=== PATIENT | female | born 1940 | race Caucasian/White ===

== ENCOUNTER 2017-07-04 09:49 | Emergency (ER) | payer MEDICARE ==
[2017-07-04 11:05] LABS: Hemoglobin 14.9 g/dL (12.0-16.0); Mean Corpuscular HGB CONC 34.8 g/dL (32.0-36.0); Mean Corpuscular Hemoglobin 30.4 pg (27.0-31.0); Mean Corpuscular Volume 87.3 fl (81.0-99.0); RBC Distribution Width 13.7 % (11.5-14.5); White Blood Cell (WBC) Count 8.9 thou/uL (4.8-10.8)
[2017-07-04] MEDS ORDERED: Lidocaine 1% w/Epinephrine 1:100K 20 ML VIAL ONE (11:18)
[2017-07-04 11:22] LABS: #Eosinphils 0.2 thou/uL (0.0-0.7); #Lymphocytes 1.2 thou/uL (1.20-3.40); #Monocytes 0.8 thou/uL (0.11-0.59); #Neutrophils 6.7 thou/uL (1.40-6.50); %Basophils 0.2 % (0.0-1.0); %Eosinophils 2.2 % (0.0-10.0); %Lymphocytes 13.7 % (21.0-51.0); %Monocytes 8.4 % (0.0-10.0); %Neutrophils 75.4 % (42.0-75.0); Mean Platelet Volume 11.2 fL (7.4-10.4); PLT Morphology Comment Appears Adequate; Platelet Count 43 thou/uL (130-400)
[2017-07-04 11:26] LABS: Anion Gap 15 mmol/L (10-20); BUN (Urea Nitrogen) 18 mg/dL (9.8-20.1); CRP (Inflammatory) 1.27 mg/dL (= or < 0.5); Calc. Creatinine Clearance 0 mL/min (70-130); Calcium 10.6 mg/dL (7.8-10.44); Carbon Dioxide 25 mmol/L (23-31); Chloride 100 mmol/L (98-107); Estimated GFR-MDRD 51; Glucose 191 mg/dL (83-110); Potassium 4.5 mmol/L (3.5-5.1); Sodium 135 mmol/L (136-145)
[2017-07-04] MEDS ORDERED: oxyCODONE/Acetaminophen 5 mg/325 mg Tablet PO SCH (11:30)
--- NOTE | 2017-07-04 11:30 | RAD ---
RIGHT KNEE 4 VIEWS: History Pain. COMPARISON: None. FINDINGS: There is moderate medial compartment, lateral compartment, and patellofemoral component degenerative change. Chondrocalcinosis is identified. No significant joint fluid. No fracture. IMPRESSION: Moderate tricompartment degenerative change. No fracture. POS: [facility]
[2017-07-04 12:39] LABS: BF Color Yellow; Body Fluid Source SYNOVIAL FLUID; Clarity Cloudy/Turbid (Clear); RBC Background Count 0.008; RBC Count-Automated 17000 /cumm; Tube # EDTA; WBC Background Count 0.01; WBC/NonHematic-Auto 5870 /cumm
[2017-07-04 13:34] LABS: BF Segmented Neutrophils 98 %; Lymphocytes 2 %
== END 2017-07-04 14:55 | disposition home or self-care (01) ==
LOC: ERS 09:49
DX: M13.161 Monoarthritis, not elsewhere classified, right knee (principal); E83.52 Hypercalcemia; D69.6 Thrombocytopenia, unspecified; E11.9 Type 2 diabetes mellitus without complications; Z85.3 Personal history of malignant neoplasm of breast; Z79.4 Long term (current) use of insulin; Z79.891 Long term (current) use of opiate analgesic; Z79.899 Other long term (current) drug therapy
CPT/HCPCS: 20610; 36415; 80048; 82945; 85025; 85060; 85652; 86140; 87070; 87205; 89051; J2001

== ENCOUNTER 2017-11-27 17:03 | Inpatient (IN) | payer MEDICARE ==
[2017-11-27] MEDS ORDERED: Ondansetron HCl/PF 4 MG/2 ML Vial ONE (17:31)
[2017-11-27] MEDS ORDERED: Morphine 2 MG/ML SYRINGE ONE ×2 (17:31→23:02)
--- NOTE | 2017-11-27 18:31 | RAD ---
FRONTAL RADIOGRAPH PELVIS 11/27/17 COMPARISON: None. HISTORY: Groin pain. No history of fall. FINDINGS: Moderate degenerative changes seen involving bilateral hips. Pelvic ring is intact. No widening of th e sacroiliac joints or pubic symphysis. No displaced fracture. IMPRESSION: No acute findings. POS: [facility]
--- NOTE | 2017-11-27 18:33 | RAD ---
TWO VIEWS OF THE RIGHT HIP 11/27/17 COMPARISON: None. HISTORY: Sudden pain in the right groin, no history of fall. FINDINGS: There is moderate degenerative change involving the right sacroiliac joint, the right hip and the pub ic symphysis. No acute osseous abnormality. IMPRESSION: Degenerative joint disease. POS: [facility]
--- NOTE | 2017-11-27 18:44 | CT ---
CT OF THE LUMBAR SPINE 11/27/17 COMPARISON: None. HISTORY: Pain. TECHNIQUE: Serial axial CT imaging is obtained at 2.5 mm intervals through the lumbar spine without contrast. Co michael and sagittal reformatted imaging obtained. FINDINGS: Evaluation for central canal and/or neural foraminal stenosis is limited on routine CT. There is extensive atherosclerotic calcification of the infrarenal abdominal aorta and the pelvic art erial branches. There is prominent degenerative change involving bilateral sacroiliac joints. On the basis of 12 lumb ar type vertebral bodies, there is anterolisthesis of L4 on L5 measuring 7-8 mm. At T11-12, there is disc space narrowing and prominent posterior osteophyte with severe central canal stenosis, incompletely assessed. T12-L1: Disc space narrowing, degenerative end plate change, vacuum disc formation, and posterior dis c osteophyte complex causes severe central canal stenosis. Significant right neural foraminal stenosi s noted as well. L1-2: Disc space narrowing, degenerative end plate change and disc osteophyte complex present with at least moderate central canal stenosis and at least mild bilateral neural foraminal stenosis, left gr eater than right. L2-3: Prominent facet hypertrophy noted, left greater than right. Disc bulge present with moderate/se erick central canal stenosis. Vacuum disc present. Moderate bilateral neural foraminal stenosis, left greater than right. L3-4: Prominent bilateral facet hypertrophy. Prominent disc bulge with severe central canal stenosis and moderate bilateral neural foraminal stenosis. L4-5: Prominent bilateral facet hypertrophy. Mild left and severe right neural foraminal stenosis erica pected. At least moderate central canal stenosis. L5-S1: Bilateral facet hypertrophy with no significant central canal or neural foraminal stenosis. No acute fracture is seen. IMPRESSION: Severe multilevel degenerative change noted within the lumbar spine as above. POS: [facility]
[2017-11-27] MEDS ORDERED: Dexamethasone 4 mg/ml Vial ONE (19:00)
[2017-11-27] MEDS ORDERED: Ketorolac Tromethamine 30 MG/ML VIAL ONE (19:43)
--- NOTE | 2017-11-27 20:44 | CT ---
CT OF THE PELVIS 11/27/17 COMPARISON: None. HISTORY: Lateral hip pain radiating into the leg on the right and into the lower back on the left. TECHNIQUE: Serial axial CT imaging at 3.75 mm intervals through the pelvis without contrast. Coronal and sagitta l reformatted imaging obtained. FINDINGS: The uterus appears surgically absent. There is a low density lesion in the right hemipelvis associated with the right ovary measuring 1.6 c m, suggesting a cyst. Nonemergent followup pelvic ultrasound is advised given patient's age. There is sigmoid diverticulosis. There is scattered atherosclerotic calcification of the distal abdom inal aorta and the arterial structures of the pelvis. There is a sclerotic focus within the ischium on the left measuring 1.1 cm suggesting a benign bone i sland in the absence of known malignancy. There is moderate degenerative change involving the pubic symphysis. There is no evidence for fractur e of the superior or inferior pubic ramus on either side. There is moderate degenerative change invol ving bilateral sacroiliac joints. Moderate degenerative changes seen involving bilateral hips with joint narrowing, subchondral scleros is and osteophyte formation. Neither hip appears dislocated. No displaced fracture is identified invo lving the imaged proximal femur on either side. No evidence for a sacral fracture is seen. There is p rominent lower lumbar spine degenerative change, better assessed on dedicated lumbar spine CT. IMPRESSION: Chronic findings described above. No acute osseous abnormality is seen. If symptoms persists, followu p MRI suggested. POS: [facility]
[2017-11-27] MEDS ORDERED: Diazepam 5 MG TAB PO SCH (21:00)
[2017-11-27] MEDS ORDERED: Ondansetron HCl/PF 4 MG/2 ML Vial IVP PRN (23:56)
[2017-11-28 00:06] VITALS: BMI 28.0
[2017-11-28] MEDS: Morphine 4 MG/ML VIAL SLOW IVP PRN ×2 (03:18→07:56)
[2017-11-28] MEDS: Ondansetron ODT 4 MG TAB SL PRN ×2 (03:21→07:57)
[2017-11-28] MEDS ORDERED: HumaLOG 300 UNITS/3 ML VIAL SC PRN (10:49)
[2017-11-28] MEDS: HumaLOG 300 UNITS/3 ML VIAL SC PRN ×2 (13:07→18:01)
[2017-11-28 15:07] LABS: Bilirubin Negative (Negative); Blood, Urine Negative (Negative); Clarity CLOUDY (Clear); Glucose, Urine (Dipstick) 250 mg/dL (Negative); Leukocyte Small (Negative); Nitrite Positive (Negative); Protein, Urine (Dipstick) Negative (Neg-Trace); Specific Gravity, Urine 1.022 (1.002-1.036); Urobilinogen 0.2 mg/dL (0.2-1.0)
[2017-11-28 15:09] LABS: Bacteria/HPF 4+ HPF (None Seen); Hyaline Casts/LPF 0-3 HYALINE CAST LPF (0-3 Hyaline); Pathc Cast-AUWi Flag 0.29 (0-2.49); RBC/HPF 0-3 HPF (0-3); Squamous Epithelial 0-3 HPF (0-3); WBC/HPF 21-50 HPF (0-3)
--- NOTE | 2017-11-28 15:37 | HP ---
DATE OF ADMISSION: 11/28/2017 CHIEF COMPLAINT: Right hip pain, low back pain. 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 The patient states that she has a long history of arthritis and has seen Orthopedics for her left kne e pain in the past, has chronic back pain as well, but yesterday evening, while she was standing up f rom the couch, she developed severe right hip pain to where she could not stand, could not move, was sent by EMS to the emergency department and had a full evaluation there with a pelvic x-ray, pelvic C T, lumbar CT, hip x-ray, and all of these reported severe degenerative joint disease, but no fracture , no masses, no bony destructions. She was given multiple medications in the emergency department to try to relieve her pain including Decadron, Valium, Toradol. She finally had some relief with IV mo rphine through the evening. She is somewhat more comfortable now, able to move her right hip, but co ntinues to have pain with movement, and inability to stand on that right hip. PAST MEDICAL HISTORY: Type 2 diabetes, arthritis, breast cancer, chronic kidney disease, hypertensio n, hyperlipidemia. ALLERGIES: TALWIN and MINOCIN. MEDICATIONS: Include losartan 50 mg daily; Novolin 70/30, 50 units twice a day; fenofibrate 160 mg d aily; levothyroxine 115 mcg once daily; Celebrex 100 mg once daily; tramadol p.r.n. severe pain; simv astatin 20 mg daily; Tylenol with Codeine p.r.n. severe pain. PAST SURGICAL HISTORY: Status post right mastectomy in 2013, past hysterectomy, and tonsillectomy. FAMILY HISTORY: Father with diabetes. Siblings with coronary artery disease and diabetes. SOCIAL HISTORY: She lives alone. She is a . Family visits. 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 No smoking, no alcohol, no drug use. REVIEW OF SYSTEMS: As per the history of present illness. General: She denies any recent fevers, c hills, or recent illness. HEENT: Denies headache, visual or hearing changes. Denies recent upper r espiratory symptoms. Cardiac: Denies chest pain, shortness of breath, or palpitations. Pulmonary: Denies cough or hemoptysis. Gastrointestinal: Denies nausea, vomiting, constipation, diarrhea, breanna yuli, or hematochezia. Genitourinary: Denies dysuria, hematuria, no recent urinary tract infection. Musculoskeletal: Positive for chronic joint pains. Positive for chronic back pain. Neurologic: N o history of seizures or syncope. PHYSICAL EXAMINATION: VITAL SIGNS: Temperature 98.0, pulse is 73 and regular, respirations 18, blood pressure 123/71, puls e ox is 97% on 2 liters and 96% on room air. GENERAL: She is awake and alert, in no acute distress. Speech is clear and fluid. NECK: Supple, no JVD, adenopathy, or bruits. HEART: Regular rate and rhythm with 2/6 systolic ejection murmur. LUNGS: Clear bilaterally. ABDOMEN: Soft, nontender, nondistended. No hepatosplenomegaly. EXTREMITIES: No clubbing, cyanosis, or edema. She has 2+ peripheral pulses bilaterally. MUSCULOSKELETAL: She has a painful range of motion of her right hip with tenderness anteriorly and l aterally. She has evidence of bony destruction in her hands and knees. NEUROLOGIC: Cranial nerves II-XII are grossly intact. Sensation is intact bilaterally. Strength is 5/5 in upper and lower extremities. LABORATORY DATA: Accu-Cheks of [address] revealed extensive degenerative joint disease , right ovarian cyst, sigmoid diverticulosis, a sclerotic focus in the ischium on the left, 1.1 cm, l ikely a benign bone island, and degenerative joint disease of the pubic symphysis, no fracture, moder ate degeneration of the SI joints, moderate degenerative changes in bilateral hips with joint narrowi ng and osteophyte formation. No dislocation, no fractures, degeneration in the lumbar spine as well. A lumbar CT revealed diffuse degeneration throughout the lumbar spine with disk narrowing and osteo phyte formation, severe canal stenosis at T12 and L1, L1-L2. Disk bulge present at L2-L3, L3-L4, L4- L5 with right neural foraminal stenosis, but no fracture seen. ASSESSMENT AND PLAN: This is a 77-year-old female patient with multiple medical problems, now with a cute worsening of her low back and right hip pain. She has had some relief of her pain with analgesi cs, but still continues to have inability to ambulate and put weight on that right hip. 1. Right hip pain. We will consult Orthopedics for evaluation. She might benefit from an injection to give her some relief and decrease inflammation in that hip. We will consult PT for evaluation as well. We will initiate rehab placement, so if she does not improve over the next few days, she can be transferred to the rehabilitation unit on a short term. 2. Spinal stenosis. I will check MRI of the spine. May need neurosurgery evaluation. Again, might benefit from steroid injection for spinal stenosis as well. I will initiate PT for this as well. 3. Type 2 diabetes. We will continue her home treatment with insulin as well as insulin sliding sca le. 4. Hypertension is better controlled on her medications. 5. Past history of breast cancer.
--- NOTE | 2017-11-28 16:16 | MRI ---
MRI LUMBAR SPINE NONCONTRAST: 11/28/17 HISTORY: Back pain with right leg radiculopathy. FINDINGS: In keeping with the numbering from the CT lumbar spine 11/27/17, the transitional vertebra will be kenia ignated as the fifth lumbar level, with other levels numbered accordingly. Vertebral body heights are maintained. There is desiccation of all of the intervertebral discs. Degenerative changes of the low er thoracic spine are evident. Prominent posterior disc protrusion at the T11-12 level with moderate to severe central canal stenosis. T12-L1: Posterior and right posterolateral disc protrusion significantly compresses the thecal sac, g reater to the right of midline. Severe central canal stenosis. Disc space narrowing with minimal dege nerative retrolisthesis Far right lateral protrusion of the disc compresses the nerve root within the right neural foramen. Moderate left foraminal stenosis. L1-2: Disc space narrowing. Minimal degenerative retrolisthesis. Posterior disc bulge and circumferen tial degenerative changes with moderate stenosis of the central canal and each neural foramen. L2-3: Posterior disc bulge and disc space narrowing. Circumferential degenerative change with moderat e stenosis of the central canal. Moderate right and severe left foraminal stenoses. L3-4: Posterior disc bulge and circumferential degenerative changes with severe stenosis of the centr al canal. Moderate to severe bilateral foraminal stenoses. L4-5: Posterior disc bulge. Circumferential degenerative changes with moderate stenosis of the centra l canal. Severe right and moderate left foraminal stenoses. L5-S1: Mild osteophytosis. Central canal and neural foramina are patent. IMPRESSION: Far right lateral disc protrusion at the T12-L1 level compressing the nerve root within the neural fo ramen. Clinical correlation regarding the right T12 dermatome is required. Severe multilevel degenerative changes throughout the lumbar spine, with central canal and foraminal stenoses as detailed above. POS: [facility]
[2017-11-28] MEDS: HYDROcodone/Acetaminophen 5/325 mg Tablet PO PRN ×2 (18:47→23:48)
[2017-11-28] MEDS: Simvastatin 20 MG TAB PO SCH (20:20)
[2017-11-28] MEDS: Cipro 250 MG TAB PO SCH (20:21)
[2017-11-28] MEDS: Insulin NPH/Reg Insulin Hm 300 UNITS/3 ML VIAL SC SCH (20:21)
[2017-11-28] MEDS: Docusate 100 MG CAP PO SCH (20:21)
[2017-11-28] MEDS ORDERED: CeleCOXIB 100 MG CAP PO SCH (21:00)
[2017-11-29] MEDS ORDERED: Morphine 2 MG/ML SYRINGE SLOW IVP PRN ×2 (00:56→09:55)
[2017-11-29] MEDS: Cipro 250 MG TAB PO SCH ×2 (06:04→20:20)
[2017-11-29] MEDS ORDERED: Acetaminophen/Codeine 30-300mg Tablet PO PRN (08:45)
[2017-11-29] MEDS: Levothyroxine 150 MCG TAB PO SCH (09:03)
[2017-11-29] MEDS: Fenofibrate Nanocrystallized 145 MG TAB PO SCH (09:04)
[2017-11-29] MEDS: Docusate 100 MG CAP PO SCH ×2 (09:04→20:19)
[2017-11-29] MEDS: Insulin NPH/Reg Insulin Hm 300 UNITS/3 ML VIAL SC SCH ×2 (09:05→20:21)
[2017-11-29] MEDS ORDERED: Enoxaparin Sodium 40 MG/0.4 ML SYRINGE SC SCH (09:30)
--- NOTE | 2017-11-29 10:32 | PRG ---
DATE OF SERVICE: 11/29/2017 SUBJECTIVE: The patient had a bad night. She had severe pain in the middle of the night requiring m orphine, because of her right hip and back pain. She has had significant improvement with the morphi ne now. She was evaluated by Orthopedics this morning, but her pain had improved after the morphine. She is still not ambulating much. She did do some with therapy yesterday, but was not able to part icipate that much. Hopefully today, they will be able to do a full evaluation and treatment. OBJECTIVE: VITAL SIGNS: Temperature 98.3, pulse of 80, respirations 18, blood pressure 96/61, pulse ox is 97% o n 2 liters. GENERAL: She is awake and alert. She is no acute distress. She is comfortable. HEENT: Mucosa is moist. HEART: Regular rate and rhythm. LUNGS: Clear. ABDOMEN: Soft. EXTREMITIES: Continues to have painful range of motion of her right hip, decreased range of motion o f her lumbar spine. LABORATORY DATA AND IMAGING: Urinalysis was positive for nitrites, suspicious for UTI. Accu-Cheks 1 23, 210, 252, 231. MRI of the lumbar spine did reveal severe degenerative joint disease throughout t he lumbar spine with central canal and foraminal stenosis, far right lateral disk protrusion at T12-L 1 compressing the nerve root in the neural foramen. ASSESSMENT AND PLAN: This is a 77-year-old female patient with history of breast cancer, hypertensio n, hyperlipidemia, now with sudden onset of severe right hip pain and inability to ambulate. MRI osei s reveal severe spinal stenosis, awaiting orthopedic evaluation. She was seen this morning and is un certain if she would benefit from a hip injection due to her spinal disease. 1. Type 2 diabetes. We will continue home treatment and insulin sliding scale. DISPOSITION: Awaiting rehab evaluation and may also consider outpatient pain management with the spi ne group.
--- NOTE | 2017-11-29 13:08 | CON-2 ---
DATE OF CONSULTATION: 11/29/2017 HISTORY OF PRESENT ILLNESS: We were asked by Dr. Jacobs to see the patient. The patient presented with some hip pain. The patient has had a little time while she has been in the hospital to think and remembers picking up a toy and standing up off a low couch and feeling some pain in her hip. She is not sure if she twisted wrong, but since this time a few days ago, it has been fairly miserable for her. She also has some back pain issues and some knee issues. Apparently, a few months ago she had some fluid drained from the right knee, it still bothers her, but it is much better after the fluid has been drained. She continues to work and is not interested in any surgical intervention at this time if at all possible. PAST MEDICAL HISTORY: Diabetes, arthritis, breast CA, kidney disease, hypertension, hyperlipidemia. ALLERGIES: TALWIN and MINOCIN. PAST SURGICAL HISTORY: Mastectomy, hysterectomy, tonsillectomy. FAMILY HISTORY: Noncontributory. CURRENT MEDICATIONS: Losartan, Novolin, fenofibrate, levothyroxine, Celebrex, tramadol, simvastatin, Tylenol with Codeine. SOCIAL HISTORY: Lives alone. 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 No alcohol or nicotine products. REVIEW OF SYSTEMS: Mostly complains of arthritic pain. She does have kidney disease, but she has been told it is getting a little bit better. No shortness of breath, fever, chills or chest pain. Just mostly arthritic type pains. No bowel or bladder issues either. PHYSICAL EXAMINATION: GENERAL: Well-nourished female, resting in bed, currently in no acute distress. Speech clear. Affect pleasant. Answers questions appropriately. She is alert and oriented x3. HEENT: Normal exam. Face symmetric. Tongue midline. NECK: Supple. RESPIRATORY: No distress. EXTREMITIES: Upper extremities, equal size, shape, symmetry. Normal bulk and tone. Lower extremities, she has her extremities up on pillows. She is able to lift her legs off the bed, has a little bit of hip pain with doing so. Active and passive range of motion of the right hip does cause pain into the groin. Left is without problems. Lower extremities with equal size, shape, symmetry, normal bulk and tone. Sensations are intact as are pulses. X-RAYS: X-ray of her right hip, she has some mild degenerative changes, but it is not awful. Right knee does show some degenerative changes of the lumbar spine, multiple areas of stenosis, foraminal stenosis, degenerative disk disease. A: 1. Right Hip pain/Strain 2. LBP with Lumbar DDD and Spondylosis/Stenosis PLAN: I spoke with the patient at length. Her hip does not look that bad on x- rays and feel really hard pressed to do surgery on her during this hospital visit. I think she could use some physical therapy, some pain relief, may be some outside physical therapy also for stretching and strengthening exercises to give her a little more stability. I do think she needs to follow up with our orthopedic group just so she has an orthopedist at hand in case her knee gets swollen and need to be drained again or for joint injections. We will get this set up for on her discharge orders. She probably needs to see a pain management doctor for some epidural steroid injections and possibly Neurosurgery for evaluation and establish care. All of this has been explained to the patient. I think it is reasonable to get her going on to physical therapy in the hospital to work on pain control. Heat, ice as needed. Hopefully, this is just an isolated event of straining her hip and it will subside in some time. If it continues to plague her again, follow up with the appropriate med staff as above. I discussed the case with Dr. Light. The patient understand the plan and is quite happy with it. [facility]
[2017-11-29] MEDS: Acetaminophen/Codeine 30-300mg Tablet PO PRN ×2 (15:04→20:20)
[2017-11-29] MEDS: CeleCOXIB 100 MG CAP PO SCH (20:20)
[2017-11-29] MEDS: Simvastatin 20 MG TAB PO SCH (20:20)
[2017-11-29] MEDS ORDERED: Losartan 25 MG TAB PO SCH ×2 (21:00)
[2017-11-30] MEDS: Acetaminophen/Codeine 30-300mg Tablet PO PRN ×2 (01:35→09:07)
[2017-11-30] MEDS: Cipro 250 MG TAB PO SCH (05:43)
--- NOTE | 2017-11-30 07:54 | PRG ---
DATE OF SERVICE: 11/30/2017 SUBJECTIVE: The patient has some improvement of her pain. She has not needed more morphine. She is ambulating with assistance to the bathroom and to the potty chair. She has not been independent. O rthopedics evaluated the patient and feels like her pain is more spinal in origin. She denies chest pain, shortness of breath or palpitations. OBJECTIVE: VITAL SIGNS: Temperature 97.7, pulse is 78, respirations 16, pulse ox is 94% on room air, blood pres sure 104/65. GENERAL: She is awake and alert, in no acute distress. Speech is clear. HEENT: Mucosa is moist. HEART: Regular rate and rhythm. LUNGS: Clear. ABDOMEN: Soft. EXTREMITIES: With no edema. Decreased range of motion of the right hip, strength is 3/5 in the righ t leg, 5/5 in the left leg, worse with flexion of the hip. Sensation is intact bilaterally. ASSESSMENT AND PLAN: 1. This is a 77-year-old female patient with history of breast cancer, hypertension, hyperlipidemia, now with sudden onset of severe right hip pain and inability to ambulate, likely secondary to spinal stenosis with severe degenerative joint disease and radiculopathy symptoms. I will continue current therapy and continue physical therapy. Hopefully, we will be able to transfer to rehab soon and brodie l schedule outpatient evaluation by pain management with Dr. Stahl and Dr. Browning. 2. Type 2 diabetes. We will continue home treatment. Hopefully, we will not have further episodes of hypoglycemia. 3. Urinary tract infection. We will continue Cipro for a total of a 5-day course. 4. Hypertension is stable. Continue to hold medications with low blood pressure readings.
[2017-11-30] MEDS: Levothyroxine 150 MCG TAB PO SCH (08:51)
[2017-11-30] MEDS: CeleCOXIB 100 MG CAP PO SCH (08:52)
[2017-11-30] MEDS: Docusate 100 MG CAP PO SCH (08:52)
[2017-11-30] MEDS: Fenofibrate Nanocrystallized 145 MG TAB PO SCH (08:52)
[2017-11-30] MEDS: Insulin NPH/Reg Insulin Hm 300 UNITS/3 ML VIAL SC SCH (08:55)
[2017-11-30] MEDS ORDERED: Enoxaparin Sodium 40 MG/0.4 ML SYRINGE SC SCH (09:00)
[2017-11-30] MEDS: HumaLOG 300 UNITS/3 ML VIAL SC PRN (12:55)
[2017-11-30 18:44] VITALS: BP 120/75; TEMP 98.2
[2017-11-30] MEDS ORDERED: Insulin NPH/Reg Insulin Hm 300 UNITS/3 ML VIAL SC SCH (21:00)
== END 2017-11-30 19:45 | disposition home or self-care (01) | DRG 552 ==
LOC: ERS 17:03 → T4-A 23:55 → OBSVTOIN 11-28 10:49
PROVIDERS: ADMIT Family Medicine; ATTEND Family Medicine
DX: M48.061 Spinal stenosis, lumbar region without neurogenic claudication (principal); N39.0 Urinary tract infection, site not specified; M51.36 Other intervertebral disc degeneration, lumbar region; M47.896 Other spondylosis, lumbar region; E11.9 Type 2 diabetes mellitus without complications; I10 Essential (primary) hypertension; E78.5 Hyperlipidemia, unspecified; Z85.3 Personal history of malignant neoplasm of breast
CPT/HCPCS: 36416; 72131; 72148; 72170; 72192; 81003; 81015; 94760; 96374; 96375; 96376; A4216; G8978-GP-CK; G8979-GP-CI; G8987-GO-CJ; G8988-GO-CI; J1100; J1650; J1885; J2270; J2405; Q0162

== ENCOUNTER 2018-11-09 13:25 | Outpatient (CLI) | payer MEDICARE | END 2018-11-09 13:26 | disposition home or self-care (01) | LOC: ULT 13:25 | PROVIDERS: ATTEND Family Medicine | DX: R91.8 Other nonspecific abnormal finding of lung field (principal) | CPT/HCPCS: 93306 ==

== ENCOUNTER 2019-04-20 04:50 | Emergency (ER) | payer MEDICARE ==
[2019-04-20] MEDS ORDERED: Morphine 4 MG/ML VIAL ONE (05:02)
[2019-04-20] MEDS ORDERED: Ondansetron PF 4 MG/2 ML Vial ONE ×2 (05:02→08:26)
[2019-04-20 05:40] LABS: #Eosinphils 0.2 thou/uL (0.0-0.7); #Monocytes 0.9 thou/uL (0.11-0.59); #Neutrophils 7.2 thou/uL (1.40-6.50); %Basophils 0.2 % (0.0-1.0); %Eosinophils 1.9 % (0.0-10.0); %Monocytes 9.8 % (0.0-10.0); %Neutrophils 77.1 % (42.0-75.0); Hemoglobin 13.2 g/dL (12.0-16.0); Mean Corpuscular HGB CONC 34.5 g/dL (32.0-36.0); Mean Corpuscular Hemoglobin 31.6 pg (27.0-31.0); Mean Corpuscular Volume 91.5 fL (78.0-98.0); Mean Platelet Volume 10.6 fL (7.4-10.4); Platelet Count 43 thou/uL (130-400); RBC Distribution Width 13.7 % (11.5-14.5); Red Blood Cell (RBC) Count 4.19 mill/uL (4.20-5.40); White Blood Cell (WBC) Count 9.3 thou/uL (4.8-10.8)
[2019-04-20 05:46] LABS: Bacteria/HPF 1+ HPF (None Seen); Bilirubin Negative (Negative); Blood, Urine Negative (Negative); Clarity Turbid (Clear); Glucose, Urine (Dipstick) 50 mg/dL (Negative); Leukocyte 500 Leu/uL (Negative); Mucous/LPF Rare LPF (<2+); Nitrite Negative (Negative); Protein, Urine (Dipstick) 30 mg/dL (Neg-Trace); RBC/HPF 0-3 HPF (0-3); Urobilinogen Normal mg/dL (Less than 2); WBC/HPF 21-50 HPF (0-3)
[2019-04-20 05:47] LABS: Unclassified Crystals 1+ HPF (None Seen)
[2019-04-20] MEDS ORDERED: metroNIDAZOLE 500 MG/100 ML BAG ONE (05:56)
[2019-04-20 05:58] LABS: ALT (SGPT) 9 U/L (8-55); AST (SGOT) 10 U/L (5-34); Albumin 3.9 g/dL (3.4-4.8); Alkaline Phosphatase 52 U/L (40-110); Anion Gap 13 mmol/L (10-20); BUN (Urea Nitrogen) 20 mg/dL (9.8-20.1); Bilirubin, Total 0.7 mg/dL (0.2-1.2); Calc. Creatinine Clearance 0 mL/min (70-130); Calcium 9.7 mg/dL (7.8-10.44); Carbon Dioxide 21 mmol/L (23-31); Chloride 104 mmol/L (98-107); Estimated GFR-MDRD 41; Globulin 2.8 g/dL (2.4-3.5); Glucose 257 mg/dL (83-110); Lipase 10 U/L (8-78); Protein, Total 6.7 g/dL (6.0-8.3); Sodium 134 mmol/L (136-145)
--- NOTE | 2019-04-20 07:03 | CT ---
CT ABDOMEN AND PELVIS WITHOUT CONTRAST: Date: 04/20/2019 COMPARISON: None. HISTORY: Rectal pain. TECHNIQUE: Multiple contiguous axial images were obtained in a CT of the abdomen and pelvis without contrast. Sa gittal and coronal reformats were performed. FINDINGS: There is a small calcification in the gallbladder which likely represents a gallstone. The liver, kid neys, adrenal glands, spleen, and pancreas are unremarkable. There is inflammatory or stranding change surrounding the rectum and left colon. This could represent diverticulitis or colitis. This was not present on the prior CT and is likely an acute process. The small bowel is unremarkable. No abdominal or pelvic lymphadenopathy seen. Atherosclerotic calcifications are seen in the aorta. Degenerative changes are seen in the spine. The visualized inferior thorax and abdominal wall soft ti ssues are unremarkable. The patient is status post right mastectomy. IMPRESSION: 1. There is inflammatory change surrounding the left colon. This could be secondary to acute diverti culitis or colitis such as ulcerative colitis. 2. Cholelithiasis. POS: [facility]
== END 2019-04-20 09:06 | disposition home or self-care (01) ==
LOC: ERS 04:50
DX: K57.32 Diverticulitis of large intestine without perforation or abscess without bleeding (principal); R11.0 Nausea; K64.4 Residual hemorrhoidal skin tags; M19.90 Unspecified osteoarthritis, unspecified site; E11.22 Type 2 diabetes mellitus with diabetic chronic kidney disease; N18.4 Chronic kidney disease, stage 4 (severe); Z79.4 Long term (current) use of insulin; Z79.899 Other long term (current) drug therapy
CPT/HCPCS: 36415; 74176; 80053; 81003; 81015; 83690; 85025; 96361; 96365; 96366; 96367; 96375; 96376; J1956; J2270; J2405

== ENCOUNTER 2023-01-19 01:10 | Inpatient (IN) | payer MEDICARE ==
[2023-01-19] MEDS ORDERED: Aspirin Chewable 81 MG TAB ONE (01:26)
[2023-01-19] MEDS ORDERED: Nitroglycerin 50 MG/250 ML BOT 0 ML ONE (01:26)
[2023-01-19] MEDS ORDERED: Furosemide 40 MG/4 ML VIAL ONE (01:55)
[2023-01-19 02:11] LABS: SARS-CoV-2 NAA Rapid Test Not Detected (NotDetected)
[2023-01-19 02:24] LABS: #Monocytes 0.8 thou/uL (0.11-0.59); #Neutrophils 5.9 thou/uL (1.40-6.50); %Basophils 0.4 % (0.0-1.0); %Lymphocytes 13.9 % (21.0-51.0); %Monocytes 10.6 % (0.0-10.0); %Neutrophils 74.1 % (42.0-75.0); Hematocrit 38.5 % (36.0-47.0); Hemoglobin 12.4 g/dL (12.0-16.0); Mean Corpuscular HGB CONC 32.2 g/dL (32.0-36.0); Mean Corpuscular Volume 90.2 fl (78.0-98.0); Mean Platelet Volume 12.8 fL (7.4-10.4); RBC Distribution Width 14.6 % (11.5-14.5); Red Blood Cell (RBC) Count 4.27 mill/uL (4.20-5.40); White Blood Cell (WBC) Count 7.9 10x3/uL (4.8-10.8)
[2023-01-19 02:33] LABS: Platelet Count 80 10x3/uL (130-400)
[2023-01-19 02:48] LABS: Troponin I 0.141 ng/mL (< 0.028)
[2023-01-19 02:48] LABS: Actual Bicarbonate (HCO3v) 22.6 mEq/L (22-28); Analyzer IN Cardio ER; Calcium, Ionized (venous) 1.19 mmol/L (1.16-1.32); Chloride (VBG) 102 mmol/L (98-106); Hematocrit-VBG 40 % (36.0-47.0); Hemoglobin (Hb) 13.6 g/dL (11.7-16.1); Sodium 138 mmol/L (133-146); pH (venous) 7.298 (7.32-7.43)
[2023-01-19 02:50] LABS: ALT (SGPT) 14 U/L (8-55); AST (SGOT) 18 U/L (5-34); Albumin 4.2 g/dL (3.4-4.8); Alkaline Phosphatase 57 U/L (40-110); Anion Gap 19 mmol/L (10-20); BUN (Urea Nitrogen) 23 mg/dL (9.8-20.1); Bilirubin, Total 0.8 mg/dL (0.2-1.2); Calc. Creatinine Clearance 0 mL/min (70-130); Calcium 10.3 mg/dL (7.8-10.44); Carbon Dioxide 18 mmol/L (23-31); Chloride 105 mmol/L (98-107); Estimated GFR 41; Globulin 2.9 g/dL (2.4-3.5); Glucose 293 mg/dL (83-110); Magnesium 1.1 mg/dL (1.6-2.6); Potassium 4.4 mmol/L (3.5-5.1); Protein, Total 7.1 g/dL (5.8-8.1); Sodium 138 mmol/L (136-145)
[2023-01-19 02:52] LABS: Potassium (VBG) 6.17 mmol/L (3.70-5.30)
[2023-01-19] MEDS ORDERED: Magnesium 2 GM/50 ML BAG (IN WATER) ONE (03:25)
[2023-01-19] MEDS ORDERED: Azithromycin 500 MG VIAL ONE (03:26)
[2023-01-19] MEDS ORDERED: cefTRIAXone (ROCEPHIN) 2 GM VIAL ONE (03:26)
[2023-01-19] MEDS ORDERED: Sodium Chloride 0.9% 100 ML ONE (03:34)
[2023-01-19] MEDS ORDERED: Dextrose 50% Abboject 50 ML SYRINGE SLOW IVP PRN (03:55)
[2023-01-19] MEDS ORDERED: Glucagon 1 MG/ML KIT IM PRN (03:55)
[2023-01-19] MEDS ORDERED: Dextrose 5% in Water 1,000 ML IV PRN (03:55)
[2023-01-19] MEDS ORDERED: Acetaminophen 650 MG Suppository PR PRN (03:55)
[2023-01-19] MEDS ORDERED: Ondansetron ODT 4 MG TAB PO PRN (03:55)
[2023-01-19] MEDS ORDERED: Magnesium 2 GM/50 ML(in water) 2 GM in Premix 1 BAG IVPB SCH ×2 (04:15→05:00)
[2023-01-19] MEDS ORDERED: Electrolyte Replacement Protocol 1 EACH FS SCH (04:15)
[2023-01-19 05:14] LABS: Hemoglobin A1c 7.4 % (4.0-6.0)
[2023-01-19 05:23] LABS: Lactic Acid 2.9 mmol/L (0.5-2.2)
[2023-01-19 05:35] LABS: Troponin I 0.746 ng/mL (< 0.028)
[2023-01-19 08:11] LABS: Anion Gap 21 mmol/L (10-20); BUN (Urea Nitrogen) 26 mg/dL (9.8-20.1); Calc. Creatinine Clearance 36 mL/min (70-130); Carbon Dioxide 20 mmol/L (23-31); Chloride 103 mmol/L (98-107); Estimated GFR 35; Glucose 330 mg/dL (83-110); Magnesium 2.3 mg/dL (1.6-2.6); Sodium 139 mmol/L (136-145)
[2023-01-19] MEDS: Aspirin 81 mg Enteric Coated Tablet PO SCH (08:53)
[2023-01-19 08:56] LABS: Troponin I 2.012 ng/mL (< 0.028)
[2023-01-19 09:06] VITALS: BMI 30.6
[2023-01-19] MEDS: HumaLOG 300 UNITS/3 ML VIAL SC PRN ×2 (11:54→20:47)
[2023-01-19] MEDS ORDERED: Iopamidol-370 76% 500 ML MDV (1 ML CHARGE) ONE (13:07)
[2023-01-19] MEDS ORDERED: Empagliflozin 10 MG TAB PO SCH (13:30)
[2023-01-19] MEDS ORDERED: Furosemide 20 MG/2 ML VIAL SLOW IVP SCH (14:00)
[2023-01-19] MEDS: Ondansetron PF 4 MG/2 ML Vial IVP PRN (14:54)
[2023-01-19] MEDS ORDERED: Nitroglycerin 2% Ointment 1 INCH/1 GM Packet TOP SCH (15:46)
[2023-01-19] MEDS: Morphine 2 MG/ML VIAL SLOW IVP PRN (17:06)
[2023-01-19] MEDS: HumuLIN 70/30 (300 UNITS/3 ML VIAL) SC SCH ×2 (17:08→17:20)
[2023-01-19] MEDS ORDERED: Metoprolol Tartrate 5 MG/5 ML VIAL IVP SCH ×2 (17:28→20:15)
[2023-01-19] MEDS ORDERED: Furosemide 40 MG/4 ML VIAL SLOW IVP SCH (17:45)
[2023-01-19 19:46] LABS: Troponin I 3.071 ng/mL (< 0.028)
[2023-01-19] MEDS ORDERED: Metoprolol Tartrate 25 MG TAB PO SCH (20:15)
[2023-01-19] MEDS: Acetaminophen 325 MG TAB PO PRN (20:59)
[2023-01-20] MEDS: Nitroglycerin 2% Ointment 1 INCH/1 GM Packet TOP SCH ×3 (01:35→20:36)
[2023-01-20 04:11] LABS: #Monocytes 1.6 thou/uL (0.11-0.59); #Neutrophils 5.6 thou/uL (1.40-6.50); %Basophils 0.2 % (0.0-1.0); %Lymphocytes 15.5 % (21.0-51.0); %Monocytes 18.4 % (0.0-10.0); %Neutrophils 65.2 % (42.0-75.0); Hematocrit 40.4 % (36.0-47.0); Hemoglobin 12.9 g/dL (12.0-16.0); Mean Corpuscular HGB CONC 31.9 g/dL (32.0-36.0); Mean Corpuscular Hemoglobin 28.7 pg (27.0-31.0); Mean Corpuscular Volume 89.8 fl (78.0-98.0); Mean Platelet Volume 11.7 fL (7.4-10.4); RBC Distribution Width 14.7 % (11.5-14.5); White Blood Cell (WBC) Count 8.6 10x3/uL (4.8-10.8)
[2023-01-20 04:38] LABS: Anion Gap 16 mmol/L (10-20); BUN (Urea Nitrogen) 36 mg/dL (9.8-20.1); Calc. Creatinine Clearance 30 mL/min (70-130); Calcium 10.1 mg/dL (7.8-10.44); Carbon Dioxide 26 mmol/L (23-31); Chloride 101 mmol/L (98-107); Estimated GFR 29; Glucose 115 mg/dL (83-110); Potassium 4.4 mmol/L (3.5-5.1); Sodium 139 mmol/L (136-145)
[2023-01-20 04:40] LABS: Platelet Count 70 10x3/uL (130-400)
[2023-01-20] MEDS: Furosemide 20 MG/2 ML VIAL SLOW IVP SCH ×2 (05:06→14:41)
[2023-01-20] MEDS: Acetaminophen 325 MG TAB PO PRN ×2 (05:11→20:35)
[2023-01-20] MEDS: Morphine 2 MG/ML VIAL SLOW IVP PRN ×2 (05:24→11:25)
[2023-01-20] MEDS: Empagliflozin 10 MG TAB PO SCH (08:02)
[2023-01-20] MEDS: Aspirin 81 mg Enteric Coated Tablet PO SCH (08:02)
[2023-01-20] MEDS: HumuLIN 70/30 (300 UNITS/3 ML VIAL) SC SCH ×2 (08:04→16:15)
[2023-01-20] MEDS ORDERED: FLU VACC QS2023(65UP)/MF59C/PF 60 MCG/0.5 ML SYRINGE IM ONE (09:00)
[2023-01-20] MEDS: Ondansetron PF 4 MG/2 ML Vial IVP PRN (14:44)
[2023-01-20] MEDS: Guaifenesin DM 100-10/5 ML UDCUP PO PRN (21:06)
[2023-01-21] MEDS: Morphine 2 MG/ML VIAL SLOW IVP PRN ×2 (02:10→21:03)
[2023-01-21] MEDS: Ondansetron PF 4 MG/2 ML Vial IVP PRN ×2 (02:17→21:03)
[2023-01-21 04:10] LABS: #Monocytes 1.1 thou/uL (0.11-0.59); #Neutrophils 4.5 thou/uL (1.40-6.50); %Basophils 0.2 % (0.0-1.0); %Lymphocytes 14.3 % (21.0-51.0); %Monocytes 16.1 % (0.0-10.0); %Neutrophils 68.9 % (42.0-75.0); Hematocrit 39.6 % (36.0-47.0); Hemoglobin 12.7 g/dL (12.0-16.0); Mean Corpuscular HGB CONC 32.1 g/dL (32.0-36.0); Mean Corpuscular Hemoglobin 28.7 pg (27.0-31.0); Mean Corpuscular Volume 89.6 fl (78.0-98.0); Mean Platelet Volume 11.1 fL (7.4-10.4); RBC Distribution Width 14.5 % (11.5-14.5); Red Blood Cell (RBC) Count 4.42 mill/uL (4.20-5.40); White Blood Cell (WBC) Count 6.5 10x3/uL (4.8-10.8)
[2023-01-21 04:11] LABS: Platelet Count 67 10x3/uL (130-400)
[2023-01-21 04:32] LABS: Anion Gap 20 mmol/L (10-20); BUN (Urea Nitrogen) 42 mg/dL (9.8-20.1); Calc. Creatinine Clearance 29 mL/min (70-130); Calcium 9.9 mg/dL (7.8-10.44); Carbon Dioxide 24 mmol/L (23-31); Chloride 97 mmol/L (98-107); Estimated GFR 30; Glucose 68 mg/dL (83-110); Potassium 4.2 mmol/L (3.5-5.1); Sodium 137 mmol/L (136-145)
[2023-01-21] MEDS: Furosemide 20 MG/2 ML VIAL SLOW IVP SCH ×2 (05:48→14:56)
[2023-01-21] MEDS: Guaifenesin DM 100-10/5 ML UDCUP PO PRN ×2 (05:48→21:02)
[2023-01-21] MEDS: Empagliflozin 10 MG TAB PO SCH (08:55)
[2023-01-21] MEDS: Aspirin 81 mg Enteric Coated Tablet PO SCH (08:56)
[2023-01-21] MEDS: Nitroglycerin 2% Ointment 1 INCH/1 GM Packet TOP SCH ×2 (08:56→21:14)
[2023-01-21] MEDS: Acetaminophen 325 MG TAB PO PRN (08:58)
[2023-01-21] MEDS ORDERED: Famotidine 20 MG TAB PO SCH (09:00)
[2023-01-21] MEDS: HumuLIN 70/30 (300 UNITS/3 ML VIAL) SC SCH ×2 (09:05→15:42)
[2023-01-21] MEDS ORDERED: LevoFLOXacin 500 MG TAB PO SCH (21:00)
[2023-01-22 04:12] LABS: #Neutrophils 3.2 thou/uL (1.40-6.50); %Basophils 0.2 % (0.0-1.0); %Eosinophils 0.2 % (0.0-10.0); %Lymphocytes 14.4 % (21.0-51.0); %Monocytes 19.6 % (0.0-10.0); %Neutrophils 64.8 % (42.0-75.0); Hematocrit 38.2 % (36.0-47.0); Mean Corpuscular HGB CONC 31.4 g/dL (32.0-36.0); Mean Corpuscular Hemoglobin 28.8 pg (27.0-31.0); Mean Corpuscular Volume 91.8 fl (78.0-98.0); RBC Distribution Width 14.4 % (11.5-14.5); Red Blood Cell (RBC) Count 4.16 mill/uL (4.20-5.40)
[2023-01-22 04:14] LABS: Platelet Count 86 10x3/uL (130-400)
[2023-01-22] MEDS: Furosemide 20 MG/2 ML VIAL SLOW IVP SCH ×2 (06:06→13:46)
[2023-01-22] MEDS: Acetaminophen 325 MG TAB PO PRN ×2 (06:23→20:32)
[2023-01-22] MEDS: HumuLIN 70/30 (300 UNITS/3 ML VIAL) SC SCH ×2 (08:38→17:07)
[2023-01-22] MEDS: Empagliflozin 10 MG TAB PO SCH (08:39)
[2023-01-22] MEDS: Aspirin 81 mg Enteric Coated Tablet PO SCH (08:39)
[2023-01-22] MEDS: Nitroglycerin 2% Ointment 1 INCH/1 GM Packet TOP SCH ×2 (08:41→19:50)
[2023-01-22] MEDS ORDERED: Famotidine 20 MG TAB PO SCH (09:00)
[2023-01-22] MEDS: HumaLOG 300 UNITS/3 ML VIAL SC PRN ×2 (12:07→20:33)
[2023-01-22] MEDS: LevoFLOXacin 500 MG TAB PO SCH (20:32)
[2023-01-23] MEDS: Furosemide 20 MG/2 ML VIAL SLOW IVP SCH ×2 (05:49→13:22)
[2023-01-23 05:57] LABS: #Monocytes 0.7 thou/uL (0.11-0.59); #Neutrophils 2.5 thou/uL (1.40-6.50); %Basophils 0.3 % (0.0-1.0); %Eosinophils 0.3 % (0.0-10.0); %Lymphocytes 16.9 % (21.0-51.0); %Monocytes 18.5 % (0.0-10.0); %Neutrophils 63.5 % (42.0-75.0); Hematocrit 39.3 % (36.0-47.0); Hemoglobin 12.7 g/dL (12.0-16.0); Mean Corpuscular HGB CONC 32.3 g/dL (32.0-36.0); Mean Corpuscular Hemoglobin 28.5 pg (27.0-31.0); Mean Corpuscular Volume 88.3 fl (78.0-98.0); Mean Platelet Volume 11.5 fL (7.4-10.4); RBC Distribution Width 14.2 % (11.5-14.5); Red Blood Cell (RBC) Count 4.45 mill/uL (4.20-5.40); White Blood Cell (WBC) Count 3.9 10x3/uL (4.8-10.8)
[2023-01-23 06:14] LABS: Platelet Count 85 10x3/uL (130-400)
[2023-01-23 06:29] LABS: Anion Gap 17 mmol/L (10-20); BUN (Urea Nitrogen) 66 mg/dL (9.8-20.1); Calc. Creatinine Clearance 27 mL/min (70-130); Calcium 10.3 mg/dL (7.8-10.44); Carbon Dioxide 32 mmol/L (23-31); Chloride 92 mmol/L (98-107); Estimated GFR 28; Glucose 151 mg/dL (83-110); Potassium 4.2 mmol/L (3.5-5.1); Sodium 137 mmol/L (136-145)
[2023-01-23] MEDS: Guaifenesin DM 100-10/5 ML UDCUP PO PRN (07:52)
[2023-01-23] MEDS: HumuLIN 70/30 (300 UNITS/3 ML VIAL) SC SCH ×2 (07:52→17:22)
[2023-01-23] MEDS: Nitroglycerin 2% Ointment 1 INCH/1 GM Packet TOP SCH ×2 (07:52→21:00)
[2023-01-23] MEDS: Aspirin 81 mg Enteric Coated Tablet PO SCH (07:52)
[2023-01-23] MEDS: Empagliflozin 10 MG TAB PO SCH (07:52)
[2023-01-23] MEDS ORDERED: Levothyroxine 150 MCG TAB PO SCH (09:00)
[2023-01-23] MEDS ORDERED: Rosuvastatin 20 MG TAB PO SCH (09:00)
[2023-01-23] MEDS ORDERED: Ipratropium/Albuterol 3 ML NEB NEB PRN (09:59)
[2023-01-23] MEDS: HumaLOG 300 UNITS/3 ML VIAL SC PRN ×2 (11:40→21:00)
[2023-01-23] MEDS: Rosuvastatin 10 MG TAB PO SCH (20:59)
[2023-01-23] MEDS: LevoFLOXacin 500 MG TAB PO SCH (20:59)
[2023-01-23] MEDS: Acetaminophen 325 MG TAB PO PRN (20:59)
[2023-01-23] MEDS: guaiFENesin ER 600 MG TAB PO SCH (20:59)
[2023-01-24] MEDS: Furosemide 20 MG/2 ML VIAL SLOW IVP SCH ×2 (04:21→13:20)
[2023-01-24] MEDS: Levothyroxine 150 MCG TAB PO SCH (04:21)
[2023-01-24] MEDS: Ondansetron PF 4 MG/2 ML Vial IVP PRN (04:21)
[2023-01-24 05:58] LABS: Anion Gap 18 mmol/L (10-20); BUN (Urea Nitrogen) 72 mg/dL (9.8-20.1); Calc. Creatinine Clearance 28 mL/min (70-130); Calcium 10.2 mg/dL (7.8-10.44); Carbon Dioxide 31 mmol/L (23-31); Chloride 92 mmol/L (98-107); Estimated GFR 29; Glucose 129 mg/dL (83-110); Potassium 3.5 mmol/L (3.5-5.1); Sodium 137 mmol/L (136-145)
[2023-01-24] MEDS: Nitroglycerin 2% Ointment 1 INCH/1 GM Packet TOP SCH ×2 (07:31→20:56)
[2023-01-24] MEDS: Guaifenesin DM 100-10/5 ML UDCUP PO PRN (07:31)
[2023-01-24] MEDS: HumuLIN 70/30 (300 UNITS/3 ML VIAL) SC SCH ×2 (07:31→18:21)
[2023-01-24] MEDS: Aspirin 81 mg Enteric Coated Tablet PO SCH (07:31)
[2023-01-24] MEDS: guaiFENesin ER 600 MG TAB PO SCH ×2 (07:31→20:50)
[2023-01-24] MEDS: Empagliflozin 10 MG TAB PO SCH (07:31)
[2023-01-24] MEDS ORDERED: Famotidine 20 MG TAB PO SCH (09:00)
[2023-01-24] MEDS ORDERED: Benzonatate 100 MG CAP PO SCH ×2 (12:00→15:00)
[2023-01-24] MEDS: HumaLOG 300 UNITS/3 ML VIAL SC PRN (12:13)
[2023-01-24] MEDS ORDERED: Senokot 8.6 MG TAB PO SCH (12:15)
[2023-01-24] MEDS: LevoFLOXacin 500 MG TAB PO SCH (20:50)
[2023-01-24] MEDS: Benzonatate 100 MG CAP PO SCH (20:50)
[2023-01-24] MEDS: Senokot 8.6 MG TAB PO SCH (20:50)
[2023-01-24] MEDS: Rosuvastatin 10 MG TAB PO SCH (20:50)
[2023-01-25] MEDS: Morphine 2 MG/ML VIAL SLOW IVP PRN
[2023-01-25] MEDS: Ondansetron PF 4 MG/2 ML Vial IVP PRN ×3 (00:03→17:13)
[2023-01-25 01:41] LABS: Troponin I 1.024 ng/mL (< 0.028)
[2023-01-25] MEDS: Guaifenesin DM 100-10/5 ML UDCUP PO PRN (03:58)
[2023-01-25 06:16] LABS: Anion Gap 18 mmol/L (10-20); BUN (Urea Nitrogen) 75 mg/dL (9.8-20.1); Calc. Creatinine Clearance 25 mL/min (70-130); Calcium 10.3 mg/dL (7.8-10.44); Carbon Dioxide 33 mmol/L (23-31); Chloride 90 mmol/L (98-107); Estimated GFR 25; Glucose 219 mg/dL (83-110); Potassium 3.7 mmol/L (3.5-5.1); Sodium 137 mmol/L (136-145)
[2023-01-25] MEDS: Furosemide 20 MG/2 ML VIAL SLOW IVP SCH (06:24)
[2023-01-25] MEDS: HumaLOG 300 UNITS/3 ML VIAL SC PRN ×2 (06:25→17:30)
[2023-01-25] MEDS: Levothyroxine 150 MCG TAB PO SCH (06:25)
[2023-01-25] MEDS: HumuLIN 70/30 (300 UNITS/3 ML VIAL) SC SCH ×2 (07:56→17:52)
[2023-01-25] MEDS ORDERED: Albumin 25% 25 GM/100 ML BOT IVPB SCH (08:00)
[2023-01-25] MEDS: guaiFENesin ER 600 MG TAB PO SCH ×2 (08:21→20:47)
[2023-01-25] MEDS: Aspirin 81 mg Enteric Coated Tablet PO SCH (08:21)
[2023-01-25] MEDS: Senokot 8.6 MG TAB PO SCH ×2 (08:21→20:47)
[2023-01-25] MEDS: Nitroglycerin 2% Ointment 1 INCH/1 GM Packet TOP SCH ×3 (08:21→20:47)
[2023-01-25] MEDS: Benzonatate 100 MG CAP PO SCH ×3 (08:22→20:47)
[2023-01-25] MEDS: Empagliflozin 10 MG TAB PO SCH (08:22)
[2023-01-25] MEDS ORDERED: Scopolamine 1 mg/72 hour Patch TD SCH (09:45)
[2023-01-25] MEDS ORDERED: Pantoprazole 40 MG VIAL IVP SCH (10:00)
[2023-01-25 17:41] LABS: Bacteria/HPF None Seen HPF (None Seen); Bilirubin Negative (Negative); Blood, Urine Negative (Negative); Clarity Clear (Clear); Glucose, Urine (Dipstick) Greater than 1000 mg/dL (Negative); Ketone, Urine Negative (Negative); Leukocyte Negative Leu/uL (Negative); Nitrite Negative (Negative); Protein, Urine (Dipstick) Negative (Neg-Trace); RBC/HPF 0-3 HPF (0-3); Squamous Epithelial None Seen HPF (0-3); Urobilinogen Normal mg/dL (Less than 2); WBC/HPF 0-3 HPF (0-3)
[2023-01-25] MEDS: Cefuroxime 250 MG TAB PO SCH (20:47)
[2023-01-25] MEDS: Rosuvastatin 10 MG TAB PO SCH (20:47)
[2023-01-25] MEDS ORDERED: ALPRAZolam 0.25 MG TAB PO SCH (21:00)
[2023-01-25] MEDS ORDERED: Famotidine/PF 20 mg/2ml Vial SLOW IVP SCH (21:00)
[2023-01-26] MEDS: Guaifenesin DM 100-10/5 ML UDCUP PO PRN (00:25)
[2023-01-26 04:32] LABS: Anion Gap 16 mmol/L (10-20); BUN (Urea Nitrogen) 69 mg/dL (9.8-20.1); Calc. Creatinine Clearance 27 mL/min (70-130); Calcium 10.6 mg/dL (7.8-10.44); Carbon Dioxide 33 mmol/L (23-31); Chloride 92 mmol/L (98-107); Estimated GFR 26; Glucose 216 mg/dL (83-110); Magnesium 2.1 mg/dL (1.6-2.6); Potassium 3.8 mmol/L (3.5-5.1); Sodium 137 mmol/L (136-145)
[2023-01-26] MEDS: Levothyroxine 150 MCG TAB PO SCH (05:21)
[2023-01-26] MEDS: HumaLOG 300 UNITS/3 ML VIAL SC PRN ×2 (05:37→21:16)
[2023-01-26] MEDS: Empagliflozin 10 MG TAB PO SCH (08:25)
[2023-01-26] MEDS: Senokot 8.6 MG TAB PO SCH ×2 (08:25→21:14)
[2023-01-26] MEDS: Ondansetron PF 4 MG/2 ML Vial IVP PRN ×2 (08:25→20:06)
[2023-01-26] MEDS: Aspirin 81 mg Enteric Coated Tablet PO SCH (08:25)
[2023-01-26] MEDS: Benzonatate 100 MG CAP PO SCH ×3 (08:25→21:14)
[2023-01-26] MEDS: guaiFENesin ER 600 MG TAB PO SCH ×2 (08:25→21:14)
[2023-01-26] MEDS: Pantoprazole 40 MG VIAL IVP SCH (08:26)
[2023-01-26] MEDS: Nitroglycerin 2% Ointment 1 INCH/1 GM Packet TOP SCH ×2 (08:26→21:15)
[2023-01-26] MEDS ORDERED: Pantoprazole 40 MG VIAL IVP SCH (09:00)
[2023-01-26] MEDS: Cefuroxime 250 MG TAB PO SCH ×2 (09:05→21:14)
[2023-01-26] MEDS: HumuLIN 70/30 (300 UNITS/3 ML VIAL) SC SCH ×2 (09:05→18:21)
[2023-01-26] MEDS ORDERED: Senokot S 8.6-50 MG TAB PO SCH (10:15)
[2023-01-26] MEDS ORDERED: Bisacodyl 10 MG SUPP PR SCH (10:15)
[2023-01-26] MEDS ORDERED: Furosemide 40 MG/4 ML VIAL SLOW IVP SCH (10:15)
[2023-01-26] MEDS ORDERED: Acetylcysteine (MUCOMYST) 200 MG/ML (10 ML VIAL) NEB SCH (10:15)
[2023-01-26] MEDS ORDERED: Polyethylene Glycol 3350 17 GM Packet PO SCH (10:15)
[2023-01-26] MEDS ORDERED: hydrOXYzine 10 MG TAB PO SCH (20:30)
[2023-01-26] MEDS: Melatonin 3 MG TAB PO PRN (21:13)
[2023-01-26] MEDS: Rosuvastatin 10 MG TAB PO SCH (21:14)
[2023-01-26] MEDS: Senokot S 8.6-50 MG TAB PO SCH (21:15)
[2023-01-27] MEDS: HumaLOG 300 UNITS/3 ML VIAL SC PRN ×4 (05:42→21:36)
[2023-01-27] MEDS: Levothyroxine 150 MCG TAB PO SCH (05:42)
[2023-01-27 08:29] LABS: Chloride 91 mmol/L (98-107); Sodium 140 mmol/L (136-145)
[2023-01-27 08:30] LABS: Calcium 10.5 mg/dL (7.8-10.44); Glucose 206 mg/dL (83-110)
[2023-01-27 08:32] LABS: Anion Gap 17 mmol/L (10-20); Carbon Dioxide 36 mmol/L (23-31)
[2023-01-27 08:34] LABS: Calc. Creatinine Clearance 24 mL/min (70-130); Estimated GFR 23
[2023-01-27 08:35] LABS: BUN (Urea Nitrogen) 71 mg/dL (9.8-20.1)
[2023-01-27] MEDS: Empagliflozin 10 MG TAB PO SCH (08:44)
[2023-01-27] MEDS: Aspirin 81 mg Enteric Coated Tablet PO SCH (08:44)
[2023-01-27] MEDS: Senokot 8.6 MG TAB PO SCH ×2 (08:44→21:30)
[2023-01-27] MEDS: guaiFENesin ER 600 MG TAB PO SCH ×2 (08:44→21:30)
[2023-01-27] MEDS: Benzonatate 100 MG CAP PO SCH ×3 (08:44→21:29)
[2023-01-27] MEDS: Pantoprazole 40 MG VIAL IVP SCH (08:44)
[2023-01-27] MEDS: Polyethylene Glycol 3350 17 GM Packet PO SCH (08:44)
[2023-01-27] MEDS: Nitroglycerin 2% Ointment 1 INCH/1 GM Packet TOP SCH ×2 (08:45→21:32)
[2023-01-27] MEDS: Senokot S 8.6-50 MG TAB PO SCH (08:45)
[2023-01-27] MEDS: Cefuroxime 250 MG TAB PO SCH ×2 (08:46→21:41)
[2023-01-27] MEDS: Fluticasone Propionate Nasal Spray 16 gm Bottle NASAL SCH (08:46)
[2023-01-27 09:25] LABS: Anion Gap 17 mmol/L (10-20); BUN (Urea Nitrogen) 68 mg/dL (9.8-20.1); Calc. Creatinine Clearance 24 mL/min (70-130); Calcium 10.8 mg/dL (7.8-10.44); Carbon Dioxide 34 mmol/L (23-31); Chloride 89 mmol/L (98-107); Estimated GFR 23; Glucose 220 mg/dL (83-110); Sodium 136 mmol/L (136-145)
[2023-01-27] MEDS: HumuLIN 70/30 (300 UNITS/3 ML VIAL) SC SCH ×3 (10:26→18:18)
[2023-01-27] MEDS ORDERED: Furosemide 40 MG/4 ML VIAL SLOW IVP SCH (13:15)
[2023-01-27] MEDS: Rosuvastatin 10 MG TAB PO SCH (21:30)
[2023-01-27] MEDS: Melatonin 3 MG TAB PO PRN (21:30)
[2023-01-27] MEDS: Acetaminophen 325 MG TAB PO PRN (21:31)
[2023-01-28] MEDS: Senokot S 8.6-50 MG TAB PO SCH ×3 (00:29→21:08)
[2023-01-28 04:54] LABS: Anion Gap 17 mmol/L (10-20); BUN (Urea Nitrogen) 76 mg/dL (9.8-20.1); Calc. Creatinine Clearance 26 mL/min (70-130); Calcium 10.5 mg/dL (7.8-10.44); Carbon Dioxide 32 mmol/L (23-31); Chloride 92 mmol/L (98-107); Estimated GFR 25; Glucose 179 mg/dL (83-110); Potassium 3.9 mmol/L (3.5-5.1); Sodium 137 mmol/L (136-145)
[2023-01-28] MEDS: Levothyroxine 150 MCG TAB PO SCH (05:59)
[2023-01-28] MEDS ORDERED: diphenhydrAMINE 25 MG CAP PO SCH ×2 (09:15→22:00)
[2023-01-28] MEDS ORDERED: Furosemide 40 MG/4 ML VIAL SLOW IVP SCH (09:15)
[2023-01-28] MEDS ORDERED: Communication Order-Pharmacy FS SCH (09:15)
[2023-01-28] MEDS: Cefuroxime 250 MG TAB PO SCH ×2 (09:20→21:07)
[2023-01-28] MEDS: guaiFENesin ER 600 MG TAB PO SCH ×2 (09:20→21:08)
[2023-01-28] MEDS: Senokot 8.6 MG TAB PO SCH ×2 (09:20→21:08)
[2023-01-28] MEDS: Pantoprazole 40 MG VIAL IVP SCH (09:20)
[2023-01-28] MEDS: Fluticasone Propionate Nasal Spray 16 gm Bottle NASAL SCH (09:20)
[2023-01-28] MEDS: Nitroglycerin 2% Ointment 1 INCH/1 GM Packet TOP SCH ×2 (09:20→21:09)
[2023-01-28] MEDS: Aspirin 81 mg Enteric Coated Tablet PO SCH (09:21)
[2023-01-28] MEDS: Polyethylene Glycol 3350 17 GM Packet PO SCH (09:21)
[2023-01-28] MEDS: Empagliflozin 10 MG TAB PO SCH (09:21)
[2023-01-28] MEDS: Benzonatate 100 MG CAP PO SCH ×3 (09:21→21:08)
[2023-01-28] MEDS: HumuLIN 70/30 (300 UNITS/3 ML VIAL) SC SCH ×2 (11:24→17:07)
[2023-01-28] MEDS ORDERED: Mineral Oil ENEMA PR SCH (16:00)
[2023-01-28] MEDS: Carvedilol 3.125 MG TAB PO SCH (17:07)
[2023-01-28] MEDS: HumaLOG 300 UNITS/3 ML VIAL SC PRN ×2 (17:07→21:09)
[2023-01-28] MEDS: ALPRAZolam 0.25 MG TAB PO PRN (17:09)
[2023-01-28] MEDS ORDERED: Furosemide 20 MG/2 ML VIAL SLOW IVP SCH (18:00)
[2023-01-28] MEDS: Ipratropium/Albuterol 3 ML NEB NEB SCH (18:41)
[2023-01-28] MEDS: Melatonin 3 MG TAB PO PRN (21:07)
[2023-01-28] MEDS: Rosuvastatin 10 MG TAB PO SCH (21:08)
[2023-01-29 05:03] LABS: Hematocrit 42.2 % (36.0-47.0); Hemoglobin 13.6 g/dL (12.0-16.0); Manual Diff?? YES; Mean Corpuscular HGB CONC 32.2 g/dL (32.0-36.0); Mean Corpuscular Hemoglobin 28.3 pg (27.0-31.0); Mean Corpuscular Volume 87.7 fl (78.0-98.0); Mean Platelet Volume 11.2 fL (7.4-10.4); Platelet Count 151 10x3/uL (130-400); RBC Distribution Width 14.4 % (11.5-14.5); Red Blood Cell (RBC) Count 4.81 mill/uL (4.20-5.40); White Blood Cell (WBC) Count 9.4 10x3/uL (4.8-10.8)
[2023-01-29 05:08] LABS: Delete Auto Diff?? YES
[2023-01-29 05:54] LABS: Band 3 % (5-11); CellaVision Operator ID lab.abc; Lymphocytes 10 % (21-51); Monocytes 8 % (0-10); Myelocyte 2 % (0-0); Neutrophil 74 % (42-75); Platelet Adequacy Comment Platelets Normal; Polychromasia SLIGHT = 2-3 cells HPF (0-2); Reactive Lymphocytes 3 % (0-10); Total Cell Count 101
[2023-01-29] MEDS: Benzonatate 100 MG CAP PO SCH ×4 (05:56→20:48)
[2023-01-29] MEDS: Carvedilol 3.125 MG TAB PO SCH ×2 (05:57→16:29)
[2023-01-29] MEDS: guaiFENesin ER 600 MG TAB PO SCH ×2 (05:57→20:48)
[2023-01-29] MEDS: Aspirin 81 mg Enteric Coated Tablet PO SCH (05:57)
[2023-01-29] MEDS: Levothyroxine 150 MCG TAB PO SCH (05:57)
[2023-01-29] MEDS: Cefuroxime 250 MG TAB PO SCH ×2 (06:00→20:48)
[2023-01-29] MEDS ORDERED: Sodium Chloride 0.9% 1,000 ML IV SCH (06:00)
[2023-01-29 07:01] LABS: Anion Gap 21 mmol/L (10-20); BUN (Urea Nitrogen) 75 mg/dL (9.8-20.1); Calc. Creatinine Clearance 24 mL/min (70-130); Calcium 10.7 mg/dL (7.8-10.44); Carbon Dioxide 31 mmol/L (23-31); Chloride 92 mmol/L (98-107); Estimated GFR 23; Glucose 120 mg/dL (83-110); Potassium 3.5 mmol/L (3.5-5.1); Sodium 140 mmol/L (136-145)
[2023-01-29] MEDS: Ipratropium/Albuterol 3 ML NEB NEB SCH ×3 (07:27→10:40)
[2023-01-29] MEDS ORDERED: Lidocaine 1% (PF) 30 ML VIAL ONE (08:09)
[2023-01-29] MEDS ORDERED: Heparin 10,000 UNITS/ 10 ML VIAL ONE (08:09)
[2023-01-29] MEDS ORDERED: fentaNYL 50 mcg/mL 1 mL Vial ONE (08:52)
[2023-01-29] MEDS ORDERED: diphenhydrAMINE 50 MG/ML VIAL ONE (09:01)
[2023-01-29] MEDS ORDERED: Nitroglycerin 0.4 MG TAB (25 Tab Bottle) SL PRN (09:49)
[2023-01-29] MEDS ORDERED: Sodium Chloride 0.9% 200 ML IV PRN (09:49)
[2023-01-29] MEDS: Senokot 8.6 MG TAB PO SCH ×2 (11:37→20:48)
[2023-01-29] MEDS: Senokot S 8.6-50 MG TAB PO SCH ×2 (11:37→20:48)
[2023-01-29] MEDS: Empagliflozin 10 MG TAB PO SCH (11:38)
[2023-01-29] MEDS: Polyethylene Glycol 3350 17 GM Packet PO SCH (11:38)
[2023-01-29] MEDS: Nitroglycerin 2% Ointment 1 INCH/1 GM Packet TOP SCH ×2 (11:38→20:49)
[2023-01-29] MEDS: Fluticasone Propionate Nasal Spray 16 gm Bottle NASAL SCH (11:39)
[2023-01-29] MEDS: Pantoprazole 40 MG VIAL IVP SCH (11:41)
[2023-01-29] MEDS ORDERED: Iopamidol 370 76% 100 ML VIAL ONE (13:29)
[2023-01-29] MEDS: HumaLOG 300 UNITS/3 ML VIAL SC PRN ×2 (17:52→21:56)
[2023-01-29] MEDS: Rosuvastatin 10 MG TAB PO SCH (20:48)
[2023-01-29] MEDS: Acetaminophen 325 MG TAB PO PRN (21:04)
[2023-01-29] MEDS: ALPRAZolam 0.25 MG TAB PO PRN (21:55)
[2023-01-30 04:49] LABS: Hematocrit 38.9 % (36.0-47.0); Hemoglobin 12.5 g/dL (12.0-16.0); Manual Diff?? YES; Mean Corpuscular HGB CONC 32.1 g/dL (32.0-36.0); Mean Corpuscular Hemoglobin 28.6 pg (27.0-31.0); Mean Platelet Volume 11.5 fL (7.4-10.4); Platelet Count 144 10x3/uL (130-400); RBC Distribution Width 14.6 % (11.5-14.5); Red Blood Cell (RBC) Count 4.37 mill/uL (4.20-5.40); White Blood Cell (WBC) Count 9.4 10x3/uL (4.8-10.8)
[2023-01-30 04:56] LABS: Delete Auto Diff?? YES
[2023-01-30 05:30] LABS: Band 7 % (5-11); CellaVision Operator ID LAB.CLH1; Eosinophils 2 % (0-10); Lymphocytes 17 % (21-51); Monocytes 5 % (0-10); Myelocyte 1 % (0-0); Neutrophil 68 % (42-75); Platelet Adequacy Comment Platelets Normal; Polychromasia SLIGHT = 2-3 cells HPF (0-2); Total Cell Count 101
[2023-01-30 05:32] LABS: Anion Gap 17 mmol/L (10-20); BUN (Urea Nitrogen) 62 mg/dL (9.8-20.1); Calc. Creatinine Clearance 26 mL/min (70-130); Calcium 10.1 mg/dL (7.8-10.44); Carbon Dioxide 31 mmol/L (23-31); Chloride 94 mmol/L (98-107); Estimated GFR 26; Glucose 186 mg/dL (83-110); Potassium 3.9 mmol/L (3.5-5.1); Sodium 138 mmol/L (136-145)
[2023-01-30] MEDS: Levothyroxine 150 MCG TAB PO SCH (05:48)
[2023-01-30] MEDS: Nitroglycerin 2% Ointment 1 INCH/1 GM Packet TOP SCH ×2 (08:49→21:33)
[2023-01-30] MEDS: Cefuroxime 250 MG TAB PO SCH ×2 (08:49→21:33)
[2023-01-30] MEDS: Aspirin 81 mg Enteric Coated Tablet PO SCH (08:49)
[2023-01-30] MEDS: Polyethylene Glycol 3350 17 GM Packet PO SCH (08:49)
[2023-01-30] MEDS: Carvedilol 3.125 MG TAB PO SCH ×2 (08:49→17:10)
[2023-01-30] MEDS: Benzonatate 100 MG CAP PO SCH ×3 (08:49→22:02)
[2023-01-30] MEDS: guaiFENesin ER 600 MG TAB PO SCH ×2 (08:49→21:33)
[2023-01-30] MEDS: Senokot S 8.6-50 MG TAB PO SCH ×2 (08:49→22:03)
[2023-01-30] MEDS: Empagliflozin 10 MG TAB PO SCH (08:49)
[2023-01-30] MEDS: Senokot 8.6 MG TAB PO SCH ×2 (08:49→22:03)
[2023-01-30] MEDS: Fluticasone Propionate Nasal Spray 16 gm Bottle NASAL SCH (08:50)
[2023-01-30] MEDS: Pantoprazole 40 MG VIAL IVP SCH (08:50)
[2023-01-30] MEDS ORDERED: Furosemide 40 MG/4 ML VIAL SLOW IVP SCH (09:45)
[2023-01-30] MEDS: HumaLOG 300 UNITS/3 ML VIAL SC PRN ×3 (12:15→22:07)
[2023-01-30] MEDS: Rosuvastatin 10 MG TAB PO SCH (21:33)
[2023-01-30] MEDS: ALPRAZolam 0.25 MG TAB PO PRN (21:33)
[2023-01-31] MEDS: Acetaminophen 325 MG TAB PO PRN ×2 (04:40→20:34)
[2023-01-31] MEDS: Levothyroxine 150 MCG TAB PO SCH (04:41)
[2023-01-31 05:31] LABS: Anion Gap 21 mmol/L (10-20); BUN (Urea Nitrogen) 58 mg/dL (9.8-20.1); Calc. Creatinine Clearance 30 mL/min (70-130); Calcium 10.3 mg/dL (7.8-10.44); Carbon Dioxide 25 mmol/L (23-31); Chloride 98 mmol/L (98-107); Estimated GFR 30; Glucose 181 mg/dL (83-110); Potassium 4.8 mmol/L (3.5-5.1); Sodium 139 mmol/L (136-145)
[2023-01-31] MEDS: HumaLOG 300 UNITS/3 ML VIAL SC PRN ×4 (06:40→20:46)
[2023-01-31] MEDS: Aspirin 81 mg Enteric Coated Tablet PO SCH (09:14)
[2023-01-31] MEDS: Carvedilol 3.125 MG TAB PO SCH ×2 (09:14→17:42)
[2023-01-31] MEDS: guaiFENesin ER 600 MG TAB PO SCH ×2 (09:15→20:35)
[2023-01-31] MEDS: Empagliflozin 10 MG TAB PO SCH (09:15)
[2023-01-31] MEDS: Pantoprazole 40 MG VIAL IVP SCH (09:15)
[2023-01-31] MEDS: Benzonatate 100 MG CAP PO SCH ×3 (09:15→20:35)
[2023-01-31] MEDS: Nitroglycerin 2% Ointment 1 INCH/1 GM Packet TOP SCH ×2 (09:16→20:35)
[2023-01-31] MEDS: Cefuroxime 250 MG TAB PO SCH ×2 (09:17→20:34)
[2023-01-31] MEDS: Fluticasone Propionate Nasal Spray 16 gm Bottle NASAL SCH (09:18)
[2023-01-31] MEDS: Senokot 8.6 MG TAB PO SCH ×2 (09:19→20:37)
[2023-01-31] MEDS: Senokot S 8.6-50 MG TAB PO SCH ×2 (09:19→20:37)
[2023-01-31] MEDS: Polyethylene Glycol 3350 17 GM Packet PO SCH (09:19)
[2023-01-31] MEDS ORDERED: Furosemide 20 MG/2 ML VIAL SLOW IVP SCH (12:15)
[2023-01-31] MEDS: Rosuvastatin 10 MG TAB PO SCH (20:35)
[2023-01-31] MEDS: ALPRAZolam 0.25 MG TAB PO PRN (20:35)
[2023-02-01] MEDS: Levothyroxine 150 MCG TAB PO SCH (05:45)
[2023-02-01] MEDS: HumaLOG 300 UNITS/3 ML VIAL SC PRN ×3 (06:44→17:37)
[2023-02-01 07:32] LABS: #Monocytes 0.8 thou/uL (0.11-0.59); #Neutrophils 4.5 thou/uL (1.40-6.50); %Basophils 0.6 % (0.0-1.0); %Eosinophils 0.1 % (0.0-10.0); %Lymphocytes 18.7 % (21.0-51.0); %Monocytes 11.6 % (0.0-10.0); %Neutrophils 64.4 % (42.0-75.0); Hematocrit 37.9 % (36.0-47.0); Hemoglobin 11.9 g/dL (12.0-16.0); Mean Corpuscular HGB CONC 31.4 g/dL (32.0-36.0); Mean Corpuscular Hemoglobin 28.5 pg (27.0-31.0); Mean Corpuscular Volume 90.9 fl (78.0-98.0); Mean Platelet Volume 11.6 fL (7.4-10.4); Platelet Count 132 10x3/uL (130-400); RBC Distribution Width 14.8 % (11.5-14.5); Red Blood Cell (RBC) Count 4.17 mill/uL (4.20-5.40)
[2023-02-01 07:41] LABS: Hemoglobin A1c 7.6 % (4.0-6.0)
[2023-02-01] MEDS: Nitroglycerin 2% Ointment 1 INCH/1 GM Packet TOP SCH ×2 (08:02→21:05)
[2023-02-01 08:03] LABS: Anion Gap 17 mmol/L (10-20); BUN (Urea Nitrogen) 58 mg/dL (9.8-20.1); Calc. Creatinine Clearance 29 mL/min (70-130); Calcium 10.1 mg/dL (7.8-10.44); Carbon Dioxide 30 mmol/L (23-31); Cardiac Risk 6.4 (Less than 4.5); Chloride 95 mmol/L (98-107); Cholesterol 127 mg/dl (< 200 Desired); Estimated GFR 30; Glucose 230 mg/dL (83-110); HDL Cholesterol 20 mg/dL (>60 Neg Risk); LDL Cholesterol, Calculated 56 mg/dL; Potassium 3.7 mmol/L (3.5-5.1); Sodium 138 mmol/L (136-145); Triglycerides 257 mg/dL (Less than 150)
[2023-02-01] MEDS: Benzonatate 100 MG CAP PO SCH ×3 (08:03→21:03)
[2023-02-01] MEDS: ALPRAZolam 0.25 MG TAB PO PRN ×3 (08:03→21:04)
[2023-02-01] MEDS: Senokot 8.6 MG TAB PO SCH ×2 (08:03→21:17)
[2023-02-01] MEDS: Cefuroxime 250 MG TAB PO SCH ×2 (08:03→21:07)
[2023-02-01] MEDS: Senokot S 8.6-50 MG TAB PO SCH ×2 (08:03→21:17)
[2023-02-01] MEDS: Empagliflozin 10 MG TAB PO SCH (08:04)
[2023-02-01] MEDS: Carvedilol 3.125 MG TAB PO SCH ×2 (08:04→17:20)
[2023-02-01] MEDS: Polyethylene Glycol 3350 17 GM Packet PO SCH (08:04)
[2023-02-01] MEDS: guaiFENesin ER 600 MG TAB PO SCH ×2 (08:04→21:04)
[2023-02-01] MEDS: Aspirin 81 mg Enteric Coated Tablet PO SCH (08:04)
[2023-02-01] MEDS: Fluticasone Propionate Nasal Spray 16 gm Bottle NASAL SCH (08:05)
[2023-02-01] MEDS: Pantoprazole 40 MG VIAL IVP SCH (08:05)
[2023-02-01] MEDS ORDERED: Communication Order-Pharmacy FS SCH (10:33)
[2023-02-01] MEDS ORDERED: Lorazepam 2 MG/ML VIAL SLOW IVP SCH (11:00)
[2023-02-01] MEDS: Rosuvastatin 10 MG TAB PO SCH (21:03)
[2023-02-01] MEDS: Acetaminophen 325 MG TAB PO PRN (21:04)
[2023-02-01] MEDS: Insulin Glargine 30 UNITS/0.3 ML VIAL SC SCH (21:05)
[2023-02-02 05:14] LABS: #Monocytes 0.8 thou/uL (0.11-0.59); %Basophils 0.7 % (0.0-1.0); %Eosinophils 0.2 % (0.0-10.0); %Lymphocytes 17.4 % (21.0-51.0); %Neutrophils 65.1 % (42.0-75.0); Hematocrit 37.8 % (36.0-47.0); Hemoglobin 11.8 g/dL (12.0-16.0); Mean Corpuscular HGB CONC 31.2 g/dL (32.0-36.0); Mean Corpuscular Hemoglobin 28.2 pg (27.0-31.0); Mean Corpuscular Volume 90.4 fl (78.0-98.0); Mean Platelet Volume 11.5 fL (7.4-10.4); Platelet Count 137 10x3/uL (130-400); RBC Distribution Width 14.6 % (11.5-14.5); Red Blood Cell (RBC) Count 4.18 mill/uL (4.20-5.40); White Blood Cell (WBC) Count 6.1 10x3/uL (4.8-10.8)
[2023-02-02] MEDS: Carvedilol 3.125 MG TAB PO SCH (05:21)
[2023-02-02] MEDS: Levothyroxine 150 MCG TAB PO SCH (05:22)
[2023-02-02] MEDS: ALPRAZolam 0.25 MG TAB PO PRN (05:22)
[2023-02-02] MEDS: Aspirin 81 mg Enteric Coated Tablet PO SCH (05:22)
[2023-02-02] MEDS: Empagliflozin 10 MG TAB PO SCH (05:22)
[2023-02-02] MEDS: Cefuroxime 250 MG TAB PO SCH (05:24)
[2023-02-02 05:30] LABS: INR-International Normal Ratio 1.1; Prothrombin Time 14.7 sec (12.0-14.7)
[2023-02-02 05:47] LABS: Anion Gap 15 mmol/L (10-20); BUN (Urea Nitrogen) 46 mg/dL (9.8-20.1); Calc. Creatinine Clearance 35 mL/min (70-130); Calcium 10.2 mg/dL (7.8-10.44); Carbon Dioxide 28 mmol/L (23-31); Chloride 100 mmol/L (98-107); Estimated GFR 36; Glucose 231 mg/dL (83-110); Potassium 3.8 mmol/L (3.5-5.1); Sodium 139 mmol/L (136-145)
[2023-02-02] MEDS ORDERED: Albumin 5% 500 ML ONE (07:11)
[2023-02-02] MEDS ORDERED: Heparin 10,000 UNITS/1 ML VIAL 30,000 UNITS in Sodium Chloride 0.9% 1,000 ML FS SCH (08:00)
[2023-02-02] MEDS ORDERED: Lidocaine 1% MPF 2 ML VIAL ONE (08:22)
[2023-02-02] MEDS ORDERED: CEFAZOLIN 2 GM VIAL ONE (08:22)
[2023-02-02] MEDS ORDERED: Sodium Chloride 0.9% 100 ML ONE (08:23)
[2023-02-02] MEDS ORDERED: Vecuronium 10 MG VIAL ONE ×2 (09:05→10:12)
[2023-02-02] MEDS ORDERED: Fentanyl 250 MCG/5 ML VIAL ONE (09:05)
[2023-02-02] MEDS ORDERED: Lidocaine 1% PF 5 ML VIAL ONE (09:07)
[2023-02-02] MEDS ORDERED: Midazolam HCl 2 mg/2 ml Vial ONE (09:07)
[2023-02-02] MEDS ORDERED: Heparin 30,000 units/30 ml VIAL ONE (10:12)
[2023-02-02] MEDS ORDERED: Protamine Sulfate 250 MG/25 ML VIAL ONE (10:12)
[2023-02-02] MEDS ORDERED: Calcium Chloride 1 GM/10 ML Abboject SYRINGE ONE (10:12)
[2023-02-02] MEDS ORDERED: Cardioplegic Soln 1,000 ML BAG ONE (10:12)
[2023-02-02] MEDS ORDERED: Lidocaine 2% PF 100 mg/5 ml Syringe ONE (10:12)
[2023-02-02] MEDS ORDERED: Thrombin 5000 UNITS/5 ML VIAL ONE (10:12)
[2023-02-02] MEDS ORDERED: Magnesium 5 GM/10 ML VIAL ONE (10:12)
[2023-02-02] MEDS ORDERED: Rocuronium Bromide 10 MG/ML (10ML VIAL) ONE ×2 (10:12→12:52)
[2023-02-02] MEDS ORDERED: Vancomycin 1 GM VIAL ONE (10:12)
[2023-02-02] MEDS ORDERED: Potassium Chloride 60 MEQ/30 ML VIAL ONE (10:12)
[2023-02-02] MEDS ORDERED: Aminocaproic Acid 5 GM/20 ML VIAL ONE (10:12)
[2023-02-02] MEDS ORDERED: Heparin 5,000 UNITS/ML VIAL ONE (10:12)
[2023-02-02] MEDS ORDERED: Sodium Bicarb 50 MEQ/50 ML VIAL ONE (10:12)
[2023-02-02] MEDS ORDERED: Mannitol 12.5 GM/50 ML ONE (10:12)
[2023-02-02] MEDS ORDERED: PROPOFOL 20 ML ONE (10:27)
[2023-02-02] MEDS ORDERED: PHENYLEPHRINE-NS 100 MCG/ML 10 ML SYRINGE ONE (11:02)
[2023-02-02] MEDS ORDERED: Insulin Regular 300 UNITS/3 ML VIAL ONE (11:03)
[2023-02-02] MEDS ORDERED: fentaNYL PF 100 MCG/2 ML SYRINGE ONE (11:59)
[2023-02-02 12:32] LABS: Manual Diff?? YES; Mean Corpuscular HGB CONC 31.8 g/dL (32.0-36.0); Mean Corpuscular Hemoglobin 28.8 pg (27.0-31.0); Mean Corpuscular Volume 90.5 fl (78.0-98.0); Mean Platelet Volume 11.3 fL (7.4-10.4); Platelet Count 111 10x3/uL (130-400); RBC Distribution Width 14.6 % (11.5-14.5); Red Blood Cell (RBC) Count 2.43 mill/uL (4.20-5.40); White Blood Cell (WBC) Count 5.5 10x3/uL (4.8-10.8)
[2023-02-02 12:39] LABS: Delete Auto Diff?? YES
[2023-02-02] MEDS ORDERED: niCARdipine 25 MG in Sodium Chloride 0.9% 250 ML 250 ML IVPB PRN (13:13)
[2023-02-02] MEDS ORDERED: Promethazine HCl 25 MG/ML VIAL IM PRN (13:13)
[2023-02-02] MEDS ORDERED: NOREPINEPHRINE 8 MG/250 ML-D5W 250 ML IVPB PRN (13:13)
[2023-02-02] MEDS ORDERED: Ipratropium/Albuterol 3 ML NEB NEB PRN (13:13)
[2023-02-02] MEDS ORDERED: Bisacodyl 5 MG TAB PO PRN (13:13)
[2023-02-02] MEDS ORDERED: Potassium Chloride 20 MEQ/100 ML PREMIX BAG IVPB PRN (13:13)
[2023-02-02] MEDS ORDERED: DOPamine 400 MG/D5W 250 ML 250 ML IVPB PRN (13:13)
[2023-02-02] MEDS ORDERED: Post-Op Insulin Drip Protocol IVPB ONE (13:13)
[2023-02-02] MEDS ORDERED: Hetastarch 6% 500 ML 500 ML IVPB PRN (13:13)
[2023-02-02] MEDS ORDERED: hydrALAZINE 20 MG/ML VIAL SLOW IVP PRN (13:13)
[2023-02-02] MEDS ORDERED: Morphine 2 MG/ML VIAL SLOW IVP PRN (13:13)
[2023-02-02] MEDS ORDERED: Nitroglycerin 50 MG/250 ML BOT 250 ML IVPB PRN (13:13)
[2023-02-02] MEDS ORDERED: Bisacodyl 10 MG SUPP PR PRN (13:13)
[2023-02-02] MEDS ORDERED: fentaNYL 50 mcg/mL 1 mL Vial SLOW IVP PRN (13:13)
[2023-02-02 13:34] LABS: Anisocytosis SLIGHT = 6-15 cells HPF (0-5); Band 33 % (5-11); CellaVision Operator ID LAB.MJL; Large Platelets 1.9 % (0-5); Lymphocytes 16 % (21-51); Metamyelocyte 4 % (0-0); Monocytes 2 % (0-10); Myelocyte 4 % (0-0); Neutrophil 40 % (42-75); Ovalocytes SLIGHT = 2-5 cells HPF (0-1); Platelet Adequacy Comment Platelets Decreased; Polychromasia SLIGHT = 2-3 cells HPF (0-2); Reactive Lymphocytes 1 % (0-10); Tear Drops SLIGHT = 2-5 cells HPF (0-1); Total Cell Count 105; Vacuoles SLIGHT
[2023-02-02 13:52] LABS: Manual Diff?? YES; Mean Corpuscular HGB CONC 31.6 g/dL (32.0-36.0); Mean Corpuscular Hemoglobin 28.7 pg (27.0-31.0); Mean Corpuscular Volume 90.9 fl (78.0-98.0); Mean Platelet Volume 11.1 fL (7.4-10.4); RBC Distribution Width 14.6 % (11.5-14.5); Red Blood Cell (RBC) Count 3.62 mill/uL (4.20-5.40); White Blood Cell (WBC) Count 9.7 10x3/uL (4.8-10.8)
[2023-02-02 13:53] LABS: Hematocrit 32.9 % (36.0-47.0); Hemoglobin 10.4 g/dL (12.0-16.0)
[2023-02-02 13:54] LABS: Delete Auto Diff?? YES; Platelet Count 116 10x3/uL (130-400)
[2023-02-02] MEDS ORDERED: Mag-Al 1200 mg/1200 mg/30 ML UDCUP PO PRN (13:57)
[2023-02-02] MEDS ORDERED: Glucagon 1 MG/ML KIT SC PRN (14:00)
[2023-02-02] MEDS ORDERED: Dextrose 50% Abboject 50 ML SYRINGE SLOW IVP PRN (14:00)
[2023-02-02] MEDS ORDERED: Dextrose 5% in Water 1,000 ML IV PRN (14:00)
[2023-02-02] MEDS ORDERED: HUMULIN R 100 UNITS in Sodium Chloride 0.9% 100 ML IVPB SCH (14:00)
[2023-02-02 14:03] LABS: INR-International Normal Ratio 1.4; Prothrombin Time 18.1 sec (12.0-14.7)
[2023-02-02 14:04] LABS: PTT 35.7 sec (22.9-36.1)
[2023-02-02 14:12] LABS: Anion Gap 14 mmol/L (10-20); BUN (Urea Nitrogen) 37 mg/dL (9.8-20.1); Calc. Creatinine Clearance 43 mL/min (70-130); Calcium 8.4 mg/dL (7.8-10.44); Carbon Dioxide 22 mmol/L (23-31); Chloride 110 mmol/L (98-107); Estimated GFR 45; Glucose 89 mg/dL (83-110); Potassium 3.7 mmol/L (3.5-5.1); Sodium 142 mmol/L (136-145)
[2023-02-02 14:17] LABS: Actual Bicarbonate (HCO3a) 21.1 mEq/L (22-28); Base Excess (BEa) -2.4 mEq/L (-2.0 to +3.0); CO2 Tension 32.2 mmHg (35.0-45.0); Calcium, Ionized (arterial) 1.16 mmol/L (1.12-1.30); Carboxyhemoglobin (COHb) 0.1 gm% (0.0-3.0); Hematocrit-ABG 34 % (36.0-47.0); Hemoglobin (Hb) 11.4 g/dL (12.0-16.0); O2 Tension (PaO2), arterial 105.7 mmHg (> 60.0); Potassium - ABG Lab 3.64 mmol/L (3.70-5.30); pH, Arterial 7.435 (7.35-7.45)
[2023-02-02 14:19] LABS: Puncture Site ALINE
[2023-02-02 14:46] LABS: Band 35 % (5-11); Eosinophils 1 % (0-10); Lymphocytes 6 % (21-51); Metamyelocyte 1 % (0-0); Monocytes 3 % (0-10); Myelocyte 2 % (0-0); Neutrophil 53 % (42-75); Polychromasia MODERATE = 3-4 cells HPF (0-2); Total Cell Count 101
[2023-02-02 14:47] LABS: CellaVision Operator ID LAB.MJL; Ovalocytes SLIGHT = 2-5 cells HPF (0-1); Platelet Adequacy Comment Platelets Decreased; Tear Drops SLIGHT = 2-5 cells HPF (0-1); Vacuoles SLIGHT
[2023-02-02] MEDS: Insulin Regular 300 UNITS/3 ML VIAL SC PRN ×2 (16:10→20:38)
[2023-02-02] MEDS: Fluticasone Propionate Nasal Spray 16 gm Bottle NASAL SCH (16:22)
[2023-02-02] MEDS: Benzonatate 100 MG CAP PO SCH (16:22)
[2023-02-02] MEDS: Polyethylene Glycol 3350 17 GM Packet PO SCH (16:23)
[2023-02-02] MEDS: Insulin Glargine 30 UNITS/0.3 ML VIAL SC SCH (16:23)
[2023-02-02] MEDS: Nitroglycerin 2% Ointment 1 INCH/1 GM Packet TOP SCH (16:23)
[2023-02-02] MEDS: guaiFENesin ER 600 MG TAB PO SCH (16:23)
[2023-02-02] MEDS: Pantoprazole 40 MG VIAL IVP SCH (16:23)
[2023-02-02] MEDS: Senokot 8.6 MG TAB PO SCH (16:24)
[2023-02-02] MEDS: Senokot S 8.6-50 MG TAB PO SCH (16:24)
[2023-02-02] MEDS: CEFAZOLIN 2 GM in Sodium Chloride 0.9% 100 ML IVPB SCH (16:54)
[2023-02-02 19:44] LABS: Hematocrit 33.4 % (36.0-47.0); Hemoglobin 10.5 g/dL (12.0-16.0)
[2023-02-02 20:03] LABS: Potassium 4.8 mmol/L (3.5-5.1)
[2023-02-02] MEDS ORDERED: Atorvastatin Calcium 20 MG TAB PO SCH (21:00)
[2023-02-02 21:24] LABS: Actual Bicarbonate (HCO3a) 22.3 mEq/L (22-28); Base Excess (BEa) -2.8 mEq/L (-2.0 to +3.0); CO2 Tension 39.9 mmHg (35.0-45.0); Calcium, Ionized (arterial) 1.24 mmol/L (1.12-1.30); Carboxyhemoglobin (COHb) 0.2 gm% (0.0-3.0); Hematocrit-ABG 34 % (36.0-47.0); Hemoglobin (Hb) 11.7 g/dL (12.0-16.0); O2 Tension (PaO2), arterial 162.7 mmHg (> 60.0); Potassium - ABG Lab 4.76 mmol/L (3.70-5.30); pH, Arterial 7.365 (7.35-7.45)
[2023-02-02] MEDS: fentaNYL 50 mcg/mL 1 mL Vial SLOW IVP PRN (21:28)
[2023-02-02] MEDS: Famotidine/PF 20 mg/2ml Vial SLOW IVP SCH (21:30)
[2023-02-02 21:31] LABS: ALV-art Gradient 72.625 mmHg (0-20); Puncture Site ALINE
[2023-02-02] MEDS: Ondansetron PF 4 MG/2 ML Vial IVP PRN (21:37)
[2023-02-02] MEDS: HYDROcodone/Acetaminophen 5/325 mg Tablet PO PRN (23:16)
[2023-02-03] MEDS: CEFAZOLIN 2 GM in Sodium Chloride 0.9% 100 ML IVPB SCH ×2 (00:22→07:55)
[2023-02-03] MEDS: fentaNYL 50 mcg/mL 1 mL Vial SLOW IVP PRN (02:13)
[2023-02-03] MEDS: HYDROcodone/Acetaminophen 5/325 mg Tablet PO PRN ×4 (03:28→19:41)
[2023-02-03 05:11] LABS: #Monocytes 1.5 thou/uL (0.11-0.59); #Neutrophils 8.7 thou/uL (1.40-6.50); %Basophils 0.1 % (0.0-1.0); %Lymphocytes 9.4 % (21.0-51.0); %Monocytes 13.2 % (0.0-10.0); %Neutrophils 75.6 % (42.0-75.0); Hematocrit 31.6 % (36.0-47.0); Hemoglobin 9.9 g/dL (12.0-16.0); Mean Corpuscular HGB CONC 31.3 g/dL (32.0-36.0); Mean Corpuscular Hemoglobin 28.9 pg (27.0-31.0); Mean Corpuscular Volume 92.4 fl (78.0-98.0); Platelet Count 139 10x3/uL (130-400); Red Blood Cell (RBC) Count 3.42 mill/uL (4.20-5.40); White Blood Cell (WBC) Count 11.5 10x3/uL (4.8-10.8)
[2023-02-03 05:31] LABS: Anion Gap 15 mmol/L (10-20); BUN (Urea Nitrogen) 35 mg/dL (9.8-20.1); Calc. Creatinine Clearance 37 mL/min (70-130); Calcium 9.1 mg/dL (7.8-10.44); Carbon Dioxide 22 mmol/L (23-31); Chloride 113 mmol/L (98-107); Estimated GFR 38; Glucose 71 mg/dL (83-110); Potassium 4.2 mmol/L (3.5-5.1); Sodium 146 mmol/L (136-145)
[2023-02-03] MEDS: Aspirin Chewable 81 MG TAB PO SCH (07:56)
[2023-02-03] MEDS ORDERED: Aspirin 325 MG TAB PO SCH (09:00)
[2023-02-03] MEDS: Ondansetron PF 4 MG/2 ML Vial IVP PRN (11:04)
[2023-02-03] MEDS ORDERED: Insulin Glargine 30 UNITS/0.3 ML VIAL SC PRN (13:56)
[2023-02-03] MEDS: Insulin Regular 300 UNITS/3 ML VIAL SC PRN (19:40)
[2023-02-03] MEDS: Rosuvastatin 10 MG TAB PO SCH (21:28)
[2023-02-03] MEDS: Famotidine/PF 20 mg/2ml Vial SLOW IVP SCH (21:29)
[2023-02-04] MEDS: Insulin Regular 300 UNITS/3 ML VIAL SC PRN ×5 (00:22→21:05)
[2023-02-04] MEDS: HYDROcodone/Acetaminophen 5/325 mg Tablet PO PRN ×3 (01:49→20:42)
[2023-02-04 04:27] LABS: #Monocytes 1.3 thou/uL (0.11-0.59); #Neutrophils 8.4 thou/uL (1.40-6.50); %Basophils 0.3 % (0.0-1.0); %Monocytes 11.8 % (0.0-10.0); Hematocrit 31.9 % (36.0-47.0); Hemoglobin 9.7 g/dL (12.0-16.0); Mean Corpuscular HGB CONC 30.4 g/dL (32.0-36.0); Mean Corpuscular Hemoglobin 28.4 pg (27.0-31.0); Mean Corpuscular Volume 93.3 fl (78.0-98.0); Mean Platelet Volume 12.3 fL (7.4-10.4); Platelet Count 124 10x3/uL (130-400); RBC Distribution Width 15.1 % (11.5-14.5); Red Blood Cell (RBC) Count 3.42 mill/uL (4.20-5.40); White Blood Cell (WBC) Count 10.6 10x3/uL (4.8-10.8)
[2023-02-04 04:49] LABS: Anion Gap 11 mmol/L (10-20); BUN (Urea Nitrogen) 25 mg/dL (9.8-20.1); Calc. Creatinine Clearance 44 mL/min (70-130); Calcium 9.7 mg/dL (7.8-10.44); Carbon Dioxide 27 mmol/L (23-31); Chloride 107 mmol/L (98-107); Estimated GFR 47; Glucose 137 mg/dL (83-110); Potassium 4.4 mmol/L (3.5-5.1); Sodium 141 mmol/L (136-145)
[2023-02-04] MEDS ORDERED: Insulin Glargine 30 UNITS/0.3 ML VIAL SC SCH (09:00)
[2023-02-04] MEDS ORDERED: Nitroglycerin 0.4 MG TAB (25 Tab Bottle) SL PRN (09:02)
[2023-02-04] MEDS ORDERED: Mineral Oil ENEMA PR PRN (09:02)
[2023-02-04] MEDS ORDERED: Dextrose 5% in Water 1,000 ML IV PRN (09:30)
[2023-02-04] MEDS ORDERED: Dextrose 50% Abboject 50 ML SYRINGE SLOW IVP PRN (09:30)
[2023-02-04] MEDS ORDERED: Glucagon 1 MG/ML KIT SC PRN (09:30)
[2023-02-04] MEDS: Aspirin Chewable 81 MG TAB PO SCH (10:08)
[2023-02-04] MEDS: Furosemide 40 MG TAB PO SCH (10:08)
[2023-02-04] MEDS: Polyethylene Glycol 3350 17 GM Packet PO SCH (10:11)
[2023-02-04 12:06] LABS: Glucose 187 mg/dL (83-110)
[2023-02-04] MEDS: Levothyroxine 150 MCG TAB PO SCH (12:12)
[2023-02-04] MEDS: Acetaminophen 325 MG TAB PO PRN (19:11)
[2023-02-04] MEDS: Rosuvastatin 10 MG TAB PO SCH (20:42)
[2023-02-04] MEDS: Insulin Glargine 30 UNITS/0.3 ML VIAL SC SCH (20:44)
[2023-02-05] MEDS: Insulin Regular 300 UNITS/3 ML VIAL SC PRN ×3 (00:38→17:32)
[2023-02-05] MEDS: HYDROcodone/Acetaminophen 5/325 mg Tablet PO PRN ×3 (03:56→22:36)
[2023-02-05] MEDS: Levothyroxine 150 MCG TAB PO SCH (05:41)
[2023-02-05] MEDS: Polyethylene Glycol 3350 17 GM Packet PO SCH (08:45)
[2023-02-05] MEDS: Furosemide 40 MG TAB PO SCH (08:46)
[2023-02-05] MEDS: Aspirin Chewable 81 MG TAB PO SCH (08:46)
[2023-02-05] MEDS: Insulin Glargine 30 UNITS/0.3 ML VIAL SC SCH ×2 (08:46→22:29)
[2023-02-05] MEDS: Acetaminophen 325 MG TAB PO PRN (12:00)
[2023-02-05] MEDS: Rosuvastatin 10 MG TAB PO SCH (22:28)
[2023-02-06] MEDS: Levothyroxine 150 MCG TAB PO SCH (05:47)
[2023-02-06] MEDS ORDERED: guaiFENesin ER 600 MG TAB PO SCH (10:00)
[2023-02-06] MEDS: Aspirin Chewable 81 MG TAB PO SCH (10:01)
[2023-02-06] MEDS: Benzonatate 100 MG CAP PO SCH ×3 (10:01→21:56)
[2023-02-06] MEDS: Empagliflozin 10 MG TAB PO SCH (10:02)
[2023-02-06] MEDS: Polyethylene Glycol 3350 17 GM Packet PO SCH (10:02)
[2023-02-06] MEDS: Insulin Glargine 30 UNITS/0.3 ML VIAL SC SCH ×2 (10:02→21:57)
[2023-02-06] MEDS: Furosemide 40 MG/4 ML VIAL SLOW IVP SCH (10:02)
[2023-02-06] MEDS: Insulin Regular 300 UNITS/3 ML VIAL SC PRN (12:29)
[2023-02-06] MEDS: guaiFENesin ER 600 MG TAB PO SCH (21:57)
[2023-02-06] MEDS: Rosuvastatin 10 MG TAB PO SCH (21:57)
[2023-02-07] MEDS: Guaifenesin DM 100-10/5 ML UDCUP PO PRN ×2 (00:58→23:33)
[2023-02-07] MEDS: Acetaminophen 325 MG TAB PO PRN (00:58)
[2023-02-07] MEDS: Levothyroxine 150 MCG TAB PO SCH (05:19)
[2023-02-07] MEDS: Insulin Regular 300 UNITS/3 ML VIAL SC PRN ×2 (05:25→21:44)
[2023-02-07 05:49] LABS: #Monocytes 1.1 thou/uL (0.11-0.59); #Neutrophils 4.8 thou/uL (1.40-6.50); %Basophils 0.3 % (0.0-1.0); %Eosinophils 0.1 % (0.0-10.0); %Lymphocytes 16.3 % (21.0-51.0); %Monocytes 15.1 % (0.0-10.0); %Neutrophils 66.9 % (42.0-75.0); Hematocrit 30.7 % (36.0-47.0); Hemoglobin 9.7 g/dL (12.0-16.0); Mean Corpuscular HGB CONC 31.6 g/dL (32.0-36.0); Mean Corpuscular Hemoglobin 28.8 pg (27.0-31.0); Mean Corpuscular Volume 91.1 fl (78.0-98.0); Mean Platelet Volume 11.1 fL (7.4-10.4); Platelet Count 190 10x3/uL (130-400); RBC Distribution Width 14.6 % (11.5-14.5); Red Blood Cell (RBC) Count 3.37 mill/uL (4.20-5.40); White Blood Cell (WBC) Count 7.1 10x3/uL (4.8-10.8)
[2023-02-07 06:22] LABS: Anion Gap 15 mmol/L (10-20); BUN (Urea Nitrogen) 27 mg/dL (9.8-20.1); Calc. Creatinine Clearance 52 mL/min (70-130); Carbon Dioxide 29 mmol/L (23-31); Chloride 101 mmol/L (98-107); Estimated GFR 56; Glucose 127 mg/dL (83-110); Potassium 4.4 mmol/L (3.5-5.1); Sodium 141 mmol/L (136-145)
[2023-02-07] MEDS: Furosemide 40 MG/4 ML VIAL SLOW IVP SCH (08:53)
[2023-02-07] MEDS: Insulin Glargine 30 UNITS/0.3 ML VIAL SC SCH ×2 (08:53→21:43)
[2023-02-07] MEDS: Benzonatate 100 MG CAP PO SCH ×3 (08:53→21:45)
[2023-02-07] MEDS: guaiFENesin ER 600 MG TAB PO SCH ×2 (08:54→21:42)
[2023-02-07] MEDS: Aspirin Chewable 81 MG TAB PO SCH (08:54)
[2023-02-07] MEDS: Polyethylene Glycol 3350 17 GM Packet PO SCH (08:54)
[2023-02-07] MEDS: Empagliflozin 10 MG TAB PO SCH (10:35)
[2023-02-07] MEDS: Carvedilol 3.125 MG TAB PO SCH (18:05)
[2023-02-07] MEDS: Rosuvastatin 10 MG TAB PO SCH (21:43)
[2023-02-08] MEDS: Levothyroxine 150 MCG TAB PO SCH (05:57)
[2023-02-08] MEDS: Aspirin Chewable 81 MG TAB PO SCH (08:13)
[2023-02-08] MEDS: guaiFENesin ER 600 MG TAB PO SCH (08:13)
[2023-02-08] MEDS: Benzonatate 100 MG CAP PO SCH (08:13)
[2023-02-08] MEDS: Furosemide 40 MG/4 ML VIAL SLOW IVP SCH (08:13)
[2023-02-08] MEDS: Carvedilol 3.125 MG TAB PO SCH (08:13)
[2023-02-08] MEDS: Empagliflozin 10 MG TAB PO SCH (08:13)
[2023-02-08] MEDS: Insulin Glargine 30 UNITS/0.3 ML VIAL SC SCH (08:14)
[2023-02-08] MEDS: Polyethylene Glycol 3350 17 GM Packet PO SCH (08:14)
[2023-02-08] MEDS ORDERED: Furosemide 40 MG TAB PO SCH (09:00)
[2023-02-08] MEDS ORDERED: Potassium Chloride 20 MEQ TAB PO SCH (09:00)
[2023-02-08 09:39] VITALS: TEMP 98.1
[2023-02-08 13:12] VITALS: BP 118/84
[2023-02-08] MEDS: Acetaminophen 325 MG TAB PO PRN (13:30)
== END 2023-02-08 15:30 | DRG 233 ==
LOC: ERS 01:10 → ERHOLD 03:18 → IMCU/EMU 08:28 → 2NO 01-24 15:48 → CCU 02-02 08:16 → 2NO 02-05 15:32
PROVIDERS: ADMIT Student in an Organized Health Care Education/Training Program; ATTEND Family Medicine
PROC: 5A09357 Assistance with Respiratory Ventilation, Less than 24 Consecutive Hours, Continuous Positive Airway Pressure (ICD-10-PCS; 2023-01-19)
PROC: 30233J1 Transfusion of Nonautologous Serum Albumin into Peripheral Vein, Percutaneous Approach (ICD-10-PCS; 2023-01-25)
PROC: B2111ZZ Fluoroscopy of Multiple Coronary Arteries using Low Osmolar Contrast (ICD-10-PCS; 2023-01-29)
PROC: B2151ZZ Fluoroscopy of Left Heart using Low Osmolar Contrast (ICD-10-PCS; 2023-01-29)
PROC: 4A023N7 Measurement of Cardiac Sampling and Pressure, Left Heart, Percutaneous Approach (ICD-10-PCS; 2023-01-29)
PROC: 021109W Bypass Coronary Artery, Two Arteries from Aorta with Autologous Venous Tissue, Open Approach (ICD-10-PCS; principal; 2023-02-02)
PROC: 06BQ3ZZ Excision of Left Saphenous Vein, Percutaneous Approach (ICD-10-PCS; 2023-02-02)
PROC: 5A1221Z Performance of Cardiac Output, Continuous (ICD-10-PCS; 2023-02-02)
PROC: 02L70CK Occlusion of Left Atrial Appendage with Extraluminal Device, Open Approach (ICD-10-PCS; 2023-02-02)
PROC: 4A133R1 Monitoring of Arterial Saturation, Peripheral, Percutaneous Approach (ICD-10-PCS; 2023-02-02)
DX: I13.2 Hypertensive heart and chronic kidney disease with heart failure and with stage 5 chronic kidney disease, or end stage renal disease (principal); I21.A1 Myocardial infarction type 2; I50.33 Acute on chronic diastolic (congestive) heart failure; J96.01 Acute respiratory failure with hypoxia; J69.0 Pneumonitis due to inhalation of food and vomit; N17.9 Acute kidney failure, unspecified; M19.90 Unspecified osteoarthritis, unspecified site; I25.10 Atherosclerotic heart disease of native coronary artery without angina pectoris; E83.42 Hypomagnesemia; D69.6 Thrombocytopenia, unspecified; E11.22 Type 2 diabetes mellitus with diabetic chronic kidney disease; E03.9 Hypothyroidism, unspecified; E66.9 Obesity, unspecified; K59.00 Constipation, unspecified; R11.0 Nausea; I08.0 Rheumatic disorders of both mitral and aortic valves; Z88.1 Allergy status to other antibiotic agents; Z85.3 Personal history of malignant neoplasm of breast; Z68.29 Body mass index [BMI] 29.0-29.9, adult; Z98.890 Other specified postprocedural states; Z90.710 Acquired absence of both cervix and uterus; Z88.8 Allergy status to other drugs, medicaments and biological substances; Z79.4 Long term (current) use of insulin; Z79.899 Other long term (current) drug therapy; Z11.52 Encounter for screening for COVID-19
CPT/HCPCS: 36415; 36416; 36430; 71045; 71275; 74018; 74230; 76705; 80048; 80053; 80061; 81001; 82805; 83036; 83605; 83735; 83880; 84443; 84484; 85025; 85379; 85610; 85730; 86850; 86870; 86900; 86901; 86922; 87040; 93005; 93010; 93458; 93459; 93798; 94002; 94150; 94640; 94660; 96365; 96367; 96375; 97139; A4311; C1751; C9113; J0456; J0696; J1200; J1642; J1644; J1650; J1815; J1940; J2001; J2060; J2150; J2250; J2272; J2405; J2704; J2720; J3010; J3370; J3475; J3480; J3490; J7050; J7608; J7620; P9045; P9047; Q9967; S0017; S0028; U0002

== ENCOUNTER 2023-04-28 07:34 | Inpatient (IN) | payer MEDICARE ==
[2023-04-28 08:15] LABS: Actual Bicarbonate (HCO3v) 25.5 mEq/L (22-28); Analyzer IN Cardio ER; Base Excess 1.8 mEq/L (-2.0 to +3.0); Calcium, Ionized (venous) 1.15 mmol/L (1.16-1.32); Chloride (VBG) 101 mmol/L (98-106); Hematocrit-VBG 37 % (36.0-47.0); Hemoglobin (Hb) 12.6 g/dL (11.7-16.1); Potassium (VBG) 4.26 mmol/L (3.70-5.30); Sodium 139 mmol/L (133-146); pH (venous) 7.457 (7.32-7.43)
[2023-04-28 08:22] LABS: #Monocytes 1.6 thou/uL (0.11-0.59); #Neutrophils 11.7 thou/uL (1.40-6.50); %Basophils 0.2 % (0.0-1.0); %Lymphocytes 11.3 % (21.0-51.0); %Monocytes 10.7 % (0.0-10.0); %Neutrophils 77.1 % (42.0-75.0); Hematocrit 34.8 % (36.0-47.0); Hemoglobin 11.3 g/dL (12.0-16.0); Mean Corpuscular HGB CONC 32.5 g/dL (32.0-36.0); Mean Corpuscular Hemoglobin 27.8 pg (27.0-31.0); Mean Corpuscular Volume 85.7 fl (78.0-98.0); Mean Platelet Volume 11.9 fL (7.4-10.4); Platelet Count 122 10x3/uL (130-400); RBC Distribution Width 16.3 % (11.5-14.5); Red Blood Cell (RBC) Count 4.06 mill/uL (4.20-5.40); White Blood Cell (WBC) Count 15.1 10x3/uL (4.8-10.8)
[2023-04-28 08:38] LABS: ALT (SGPT) 10 U/L (8-55); AST (SGOT) 28 U/L (5-34); Albumin 3.9 g/dL (3.4-4.8); Alkaline Phosphatase 74 U/L (40-110); Anion Gap 16 mmol/L (10-20); BUN (Urea Nitrogen) 41 mg/dL (9.8-20.1); Bilirubin, Total 0.8 mg/dL (0.2-1.2); Calc. Creatinine Clearance 0 mL/min (70-130); Calcium 10.2 mg/dL (7.8-10.44); Carbon Dioxide 24 mmol/L (23-31); Chloride 102 mmol/L (98-107); Estimated GFR 39; Globulin 3.1 g/dL (2.4-3.5); Glucose 182 mg/dL (83-110); Potassium 4.4 mmol/L (3.5-5.1); Sodium 138 mmol/L (136-145)
[2023-04-28 08:47] LABS: Critical Call Chem Troponin I NUR.MC19 AT 0846; Troponin I 3.877 ng/mL (< 0.028)
[2023-04-28] MEDS ORDERED: Enoxaparin 80 MG (0.8 mL) SYRINGE ONE (08:59)
[2023-04-28] MEDS ORDERED: Aspirin Chewable 81 MG TAB ONE (08:59)
[2023-04-28] MEDS ORDERED: Furosemide 40 MG (4 mL) VIAL ONE (08:59)
[2023-04-28 09:03] LABS: Bacteria/HPF 4+ HPF (None Seen); Bilirubin Negative (Negative); Blood, Urine Trace (Negative); CAUTI Indications for Culture Alt mental st,lethar; Clarity Turbid (Clear); Glucose, Urine (Dipstick) Normal (Negative); Ketone, Urine Negative (Negative); Leukocyte 500 Leu/uL (Negative); Nitrite Negative (Negative); Protein, Urine (Dipstick) 50 mg/dL (Neg-Trace); Urobilinogen Normal mg/dL (Less than 2); WBC/HPF Greater than 50 HPF (0-3)
[2023-04-28 09:04] LABS: Urine Culture Reflex Yes Yes
[2023-04-28] MEDS ORDERED: fentaNYL 50 mcg/mL 1 mL Vial ONE (09:15)
[2023-04-28] MEDS ORDERED: cefTRIAXone (ROCEPHIN) 2 GM VIAL ONE (09:23)
[2023-04-28] MEDS ORDERED: Sodium Chloride 0.9% 100 ML ONE (09:23)
[2023-04-28 09:39] LABS: Influenza A by NAA Not Detected (NotDetected); Influenza B by NAA Not Detected (NotDetected); SARS-CoV-2 NAA Rapid Test Not Detected (NotDetected)
[2023-04-28 09:57] LABS: INR-International Normal Ratio 1.3; Prothrombin Time 16.1 sec (12.0-14.7)
[2023-04-28 09:58] LABS: PTT 51.5 sec (22.9-36.1)
[2023-04-28] MEDS: Furosemide 40 MG (4 mL) VIAL SLOW IVP SCH (13:57)
[2023-04-28 18:52] LABS: Critical Call Chem Troponin I RESULT DECREASING; Troponin I 3.855 ng/mL (< 0.028)
[2023-04-28] MEDS: Nitroglycerin 0.4 MG TAB (25 Tab Bottle) SL PRN (20:35)
[2023-04-28] MEDS: Enoxaparin 80 MG (0.8 mL) SYRINGE SC SCH (20:36)
[2023-04-28] MEDS: Insulin Glargine 30 UNITS/0.3 ML VIAL SC SCH (20:37)
[2023-04-28] MEDS: Carvedilol 3.125 MG TAB PO SCH (20:38)
[2023-04-29] MEDS: Acetaminophen 325 MG TAB PO PRN (04:54)
[2023-04-29] MEDS: Levothyroxine 150 MCG TAB PO SCH (05:09)
[2023-04-29 06:12] LABS: #Monocytes 0.7 thou/uL (0.11-0.59); #Neutrophils 7.1 thou/uL (1.40-6.50); %Basophils 0.1 % (0.0-1.0); %Lymphocytes 8.6 % (21.0-51.0); %Monocytes 7.9 % (0.0-10.0); %Neutrophils 82.6 % (42.0-75.0); Hematocrit 32.5 % (36.0-47.0); Hemoglobin 10.3 g/dL (12.0-16.0); Mean Corpuscular HGB CONC 31.7 g/dL (32.0-36.0); Mean Corpuscular Hemoglobin 26.9 pg (27.0-31.0); Mean Corpuscular Volume 84.9 fl (78.0-98.0); Mean Platelet Volume 12.7 fL (7.4-10.4); Platelet Count 117 10x3/uL (130-400); Red Blood Cell (RBC) Count 3.83 mill/uL (4.20-5.40); White Blood Cell (WBC) Count 8.6 10x3/uL (4.8-10.8)
[2023-04-29 06:45] LABS: ALT (SGPT) 11 U/L (8-55); AST (SGOT) 17 U/L (5-34); Albumin 3.6 g/dL (3.4-4.8); Alkaline Phosphatase 68 U/L (40-110); Anion Gap 19 mmol/L (10-20); BUN (Urea Nitrogen) 70 mg/dL (9.8-20.1); Bilirubin, Total 0.5 mg/dL (0.2-1.2); Calc. Creatinine Clearance 24 mL/min (70-130); Calcium 9.5 mg/dL (7.8-10.44); Carbon Dioxide 21 mmol/L (23-31); Chloride 98 mmol/L (98-107); Estimated GFR 24; Globulin 2.9 g/dL (2.4-3.5); Potassium 4.4 mmol/L (3.5-5.1); Protein, Total 6.5 g/dL (5.8-8.1); Sodium 134 mmol/L (136-145)
[2023-04-29 06:49] LABS: Critical Call Chemistry NUR.EM16 @0648; Glucose 464 mg/dL (83-110)
[2023-04-29] MEDS ORDERED: Dextrose 50% Abboject 50 ML SYRINGE SLOW IVP PRN (07:54)
[2023-04-29] MEDS ORDERED: Dextrose 5% in Water 1,000 ML IV PRN ×2 (07:54→08:00)
[2023-04-29] MEDS ORDERED: HumaLOG 300 UNITS/3 ML VIAL SC PRN ×3 (07:54→08:00)
[2023-04-29] MEDS ORDERED: Glucagon 1 MG/ML KIT IM PRN ×2 (07:54→08:00)
[2023-04-29] MEDS ORDERED: Dextrose 50% Abboject 50 ML SYRINGE IVP PRN (08:00)
[2023-04-29] MEDS ORDERED: Enoxaparin 40 MG (0.4 mL) SYRINGE SC SCH (09:00)
[2023-04-29] MEDS: cefTRIAXone\\ROCEPHIN 1 GM in Sodium Chloride 0.9% 100 ML IVPB SCH (09:27)
[2023-04-29] MEDS: Aspirin Chewable 81 MG TAB PO SCH (09:28)
[2023-04-29] MEDS: Rosuvastatin 20 MG TAB PO SCH (09:28)
[2023-04-29] MEDS: HumaLOG 300 UNITS/3 ML VIAL SC PRN ×2 (09:28→17:12)
[2023-04-29] MEDS: Calcium Carbonate 500 MG ChewTAB PO PRN (10:49)
[2023-04-29] MEDS: Albumin 25% 25 GM (100 mL) BOT IVPB SCH (11:57)
[2023-04-29] MEDS: Heparin 10,000 UNITS/ 10 ML VIAL SLOW IVP SCH (11:59)
[2023-04-29 12:02] LABS: Hematocrit 31.8 % (36.0-47.0); Hemoglobin 10.2 g/dL (12.0-16.0); Platelet Count 157 10x3/uL (130-400)
[2023-04-29] MEDS: Heparin 25,000 units/D5W 500 ML IVPB SCH (12:07)
[2023-04-29] MEDS: Nitroglycerin 2% Ointment 1 INCH/1 GM Packet ONE (12:37)
[2023-04-29] MEDS: Clopidogrel Bisulfate 300 MG TAB PO SCH (12:43)
[2023-04-29 13:19] LABS: Anion Gap 23 mmol/L (10-20); BUN (Urea Nitrogen) 80 mg/dL (9.8-20.1); Calc. Creatinine Clearance 21 mL/min (70-130); Calcium 9.5 mg/dL (7.8-10.44); Carbon Dioxide 22 mmol/L (23-31); Chloride 95 mmol/L (98-107); Estimated GFR 21; Potassium 4.7 mmol/L (3.5-5.1); Sodium 135 mmol/L (136-145)
[2023-04-29] MEDS: Morphine 2 MG/ML VIAL SLOW IVP PRN (13:26)
[2023-04-29] MEDS: Lorazepam 2 MG/ML VIAL SLOW IVP SCH (13:27)
[2023-04-29] MEDS: Furosemide 20 MG (2 mL) VIAL SLOW IVP SCH (13:27)
[2023-04-29] MEDS: Nitroglycerin 2% Ointment 1 INCH/1 GM Packet TOP SCH ×2 (13:27→21:14)
[2023-04-29] MEDS: Lorazepam 2 MG/ML VIAL ONE (13:28)
[2023-04-29 13:29] LABS: Glucose 553 mg/dL (83-110)
[2023-04-29] MEDS ORDERED: Furosemide 40 MG (4 mL) VIAL SLOW IVP SCH ×2 (14:00)
[2023-04-29] MEDS: HumaLOG 300 UNITS/3 ML VIAL SC SCH (14:06)
[2023-04-29] MEDS: Carvedilol 3.125 MG TAB PO SCH (16:14)
[2023-04-29] MEDS: Insulin Glargine 30 UNITS/0.3 ML VIAL SC SCH (17:12)
[2023-04-29] MEDS ORDERED: Enoxaparin 80 MG (0.8 mL) SYRINGE SC SCH (21:00)
[2023-04-30 05:55] LABS: #Monocytes 1.8 thou/uL (0.11-0.59); #Neutrophils 14.2 thou/uL (1.40-6.50); %Basophils 0.1 % (0.0-1.0); %Eosinophils 0.1 % (0.0-10.0); %Lymphocytes 6.8 % (21.0-51.0); %Monocytes 10.5 % (0.0-10.0); %Neutrophils 81.9 % (42.0-75.0); Hematocrit 33.1 % (36.0-47.0); Hemoglobin 10.5 g/dL (12.0-16.0); Mean Corpuscular HGB CONC 31.7 g/dL (32.0-36.0); Mean Corpuscular Hemoglobin 27.2 pg (27.0-31.0); Mean Corpuscular Volume 85.8 fl (78.0-98.0); Mean Platelet Volume 12.6 fL (7.4-10.4); Platelet Count 177 10x3/uL (130-400); RBC Distribution Width 16.1 % (11.5-14.5); Red Blood Cell (RBC) Count 3.86 mill/uL (4.20-5.40); White Blood Cell (WBC) Count 17.3 10x3/uL (4.8-10.8)
[2023-04-30 06:19] LABS: Troponin I 4.123 ng/mL (< 0.028)
[2023-04-30 06:20] LABS: ALT (SGPT) 9 U/L (8-55); AST (SGOT) 25 U/L (5-34); Albumin 4.5 g/dL (3.4-4.8); Alkaline Phosphatase 56 U/L (40-110); Anion Gap 22 mmol/L (10-20); BUN (Urea Nitrogen) 89 mg/dL (9.8-20.1); Bilirubin, Total 0.4 mg/dL (0.2-1.2); Calc. Creatinine Clearance 22 mL/min (70-130); Calcium 9.6 mg/dL (7.8-10.44); Carbon Dioxide 20 mmol/L (23-31); Chloride 98 mmol/L (98-107); Estimated GFR 21; Globulin 2.9 g/dL (2.4-3.5); Glucose 223 mg/dL (83-110); Potassium 5.6 mmol/L (3.5-5.1); Protein, Total 7.4 g/dL (5.8-8.1); Sodium 134 mmol/L (136-145)
[2023-04-30] MEDS: LOKELMA 10 GM PACKET PO SCH (08:14)
[2023-04-30] MEDS: Clopidogrel Bisulfate 75 MG TAB PO SCH (08:16)
[2023-04-30] MEDS: Furosemide 20 MG (2 mL) VIAL SLOW IVP SCH (08:16)
[2023-04-30] MEDS: ALPRAZolam 0.5 MG TAB PO PRN (08:16)
[2023-04-30] MEDS: Insulin Glargine 30 UNITS/0.3 ML VIAL SC SCH (08:16)
[2023-04-30 08:23] LABS: Anion Gap 23 mmol/L (10-20); BUN (Urea Nitrogen) 91 mg/dL (9.8-20.1); Calc. Creatinine Clearance 21 mL/min (70-130); Carbon Dioxide 22 mmol/L (23-31); Chloride 97 mmol/L (98-107); Estimated GFR 20; Glucose 214 mg/dL (83-110); Potassium 5.1 mmol/L (3.5-5.1); Sodium 137 mmol/L (136-145)
[2023-04-30] MEDS: Albumin 25% 25 GM (100 mL) BOT IVPB SCH (12:14)
[2023-04-30 12:20] VITALS: BP 92/66
[2023-04-30] MEDS: Furosemide 40 MG (4 mL) VIAL SLOW IVP SCH (13:16)
[2023-04-30] MEDS: Ondansetron PF 4 MG/2 ML Vial IVP PRN (21:38)
[2023-05-01 06:04] LABS: #Monocytes 1.9 thou/uL (0.11-0.59); #Neutrophils 11.8 thou/uL (1.40-6.50); %Basophils 0.1 % (0.0-1.0); %Lymphocytes 7.9 % (21.0-51.0); %Monocytes 12.8 % (0.0-10.0); %Neutrophils 78.7 % (42.0-75.0); Hematocrit 33.9 % (36.0-47.0); Hemoglobin 10.2 g/dL (12.0-16.0); Mean Corpuscular HGB CONC 30.1 g/dL (32.0-36.0); Platelet Count 127 10x3/uL (130-400); RBC Distribution Width 15.9 % (11.5-14.5); Red Blood Cell (RBC) Count 3.78 mill/uL (4.20-5.40)
[2023-05-01 06:26] LABS: Mean Corpuscular Volume 89.7 fl (78.0-98.0)
[2023-05-01 06:27] LABS: ALT (SGPT) Less than 7 U/L (8-55); AST (SGOT) 10 U/L (5-34); Albumin 4.9 g/dL (3.4-4.8); Alkaline Phosphatase 44 U/L (40-110); Anion Gap 21 mmol/L (10-20); BUN (Urea Nitrogen) 100 mg/dL (9.8-20.1); Bilirubin, Total 0.6 mg/dL (0.2-1.2); Calc. Creatinine Clearance 18 mL/min (70-130); Calcium 9.7 mg/dL (7.8-10.44); Carbon Dioxide 21 mmol/L (23-31); Chloride 95 mmol/L (98-107); Estimated GFR 17; Globulin 2.2 g/dL (2.4-3.5); Glucose 266 mg/dL (83-110); Potassium 4.7 mmol/L (3.5-5.1); Protein, Total 7.1 g/dL (5.8-8.1); Sodium 132 mmol/L (136-145)
[2023-05-01] MEDS: Insulin Glargine 30 UNITS/0.3 ML VIAL SC SCH (09:53)
[2023-05-01] MEDS: Furosemide 40 MG (4 mL) VIAL SLOW IVP SCH ×2 (10:40→15:10)
[2023-05-01] MEDS: Albumin 25% 25 GM (100 mL) BOT IVPB SCH (12:22)
[2023-05-01 12:40] LABS: Hematocrit 30.7 % (36.0-47.0); Hemoglobin 9.5 g/dL (12.0-16.0); Platelet Count 125 10x3/uL (130-400)
[2023-05-01] MEDS ORDERED: Enoxaparin 30 MG (0.3 mL) SYRINGE SC SCH (21:00)
[2023-05-01] MEDS: Heparin 5,000 UNITS/ML VIAL SC SCH (21:39)
[2023-05-02 05:19] LABS: #Monocytes 1.4 thou/uL (0.11-0.59); #Neutrophils 7.8 thou/uL (1.40-6.50); %Eosinophils 0.1 % (0.0-10.0); %Lymphocytes 8.3 % (21.0-51.0); %Monocytes 13.9 % (0.0-10.0); %Neutrophils 77.3 % (42.0-75.0); Hematocrit 29.3 % (36.0-47.0); Mean Corpuscular HGB CONC 30.7 g/dL (32.0-36.0); Mean Corpuscular Hemoglobin 27.4 pg (27.0-31.0); Mean Corpuscular Volume 89.3 fl (78.0-98.0); Mean Platelet Volume 12.1 fL (7.4-10.4); Platelet Count 98 10x3/uL (130-400); RBC Distribution Width 15.9 % (11.5-14.5); Red Blood Cell (RBC) Count 3.28 mill/uL (4.20-5.40); White Blood Cell (WBC) Count 10.1 10x3/uL (4.8-10.8)
[2023-05-02 05:54] LABS: ALT (SGPT) Less than 7 U/L (8-55); AST (SGOT) 9 U/L (5-34); Alkaline Phosphatase 41 U/L (40-110); Anion Gap 22 mmol/L (10-20); BUN (Urea Nitrogen) 118 mg/dL (9.8-20.1); Bilirubin, Total 1.1 mg/dL (0.2-1.2); Calc. Creatinine Clearance 12 mL/min (70-130); Calcium 9.9 mg/dL (7.8-10.44); Carbon Dioxide 23 mmol/L (23-31); Chloride 96 mmol/L (98-107); Estimated GFR 10; Globulin 2.1 g/dL (2.4-3.5); Glucose 158 mg/dL (83-110); Potassium 4.8 mmol/L (3.5-5.1); Protein, Total 7.1 g/dL (5.8-8.1); Sodium 136 mmol/L (136-145)
[2023-05-03] MEDS: Digoxin 0.5 MG/2 ML AMP SLOW IVP SCH ×2 (05:53→22:23)
[2023-05-03 12:45] LABS: Hematocrit 33.5 % (36.0-47.0); Hemoglobin 10.1 g/dL (12.0-16.0); Platelet Count 114 10x3/uL (130-400)
[2023-05-05 12:50] LABS: Hematocrit 34.8 % (36.0-47.0); Hemoglobin 10.9 g/dL (12.0-16.0); Platelet Count 230 10x3/uL (130-400)
[2023-05-05 14:21] VITALS: BMI 29.0
[2023-05-06 08:21] VITALS: TEMP 96.5
[2023-05-06] MEDS: Lorazepam 2 MG/ML VIAL SLOW IVP SCH (09:38)
[2023-05-06] MEDS ORDERED: D5W-AA 4.25% with LYTES 1,000 ML IV SCH (10:15)
== END 2023-05-06 17:38 | disposition hospice, inpatient (51) | DRG 280 ==
LOC: ERS 07:34 → ERHOLD 09:33 → IMCU/EMU 10:49
PROVIDERS: ADMIT Internal Medicine; ATTEND Internal Medicine
PROC: 5A09557 Assistance with Respiratory Ventilation, Greater than 96 Consecutive Hours, Continuous Positive Airway Pressure (ICD-10-PCS; principal; 2023-04-28)
PROC: 30233J1 Transfusion of Nonautologous Serum Albumin into Peripheral Vein, Percutaneous Approach (ICD-10-PCS; 2023-04-29)
DX: I50.43 Acute on chronic combined systolic (congestive) and diastolic (congestive) heart failure (principal); I21.4 Non-ST elevation (NSTEMI) myocardial infarction; J96.21 Acute and chronic respiratory failure with hypoxia; N17.9 Acute kidney failure, unspecified; N39.0 Urinary tract infection, site not specified; I50.84 End stage heart failure; Z66 Do not resuscitate; Z51.5 Encounter for palliative care; D69.6 Thrombocytopenia, unspecified; R13.10 Dysphagia, unspecified; B96.20 Unspecified Escherichia coli [E. coli] as the cause of diseases classified elsewhere; I25.10 Atherosclerotic heart disease of native coronary artery without angina pectoris; E11.22 Type 2 diabetes mellitus with diabetic chronic kidney disease; N18.30 Chronic kidney disease, stage 3 unspecified; E03.9 Hypothyroidism, unspecified; Z95.1 Presence of aortocoronary bypass graft; Z79.890 Hormone replacement therapy; Z79.82 Long term (current) use of aspirin; Z79.899 Other long term (current) drug therapy; Z79.4 Long term (current) use of insulin; Z90.710 Acquired absence of both cervix and uterus; Z98.890 Other specified postprocedural states; Z88.8 Allergy status to other drugs, medicaments and biological substances
CPT/HCPCS: 36415; 36416; 71045; 76770; 80053; 81001; 82805; 83605; 83880; 84484; 85014; 85018; 85025; 85049; 85379; 85610; 85730; 87040; 87077; 87086; 87186; 93005; 93010; 93306; 93798; 94660; 94760; 96365; 96375; J0696; J1160; J1644; J1650; J1815; J1940; J2060; J2272; J2405; J3010; J3490; P9047

== ENCOUNTER 2023-05-06 17:45 | Inpatient (IN) | payer OTHER ==
[2023-05-06 17:58] VITALS: BMI 29.0
[2023-05-06] MEDS: Morphine 2 MG/ML VIAL SLOW IVP SCH (18:26)
[2023-05-06] MEDS: Lorazepam 2 MG/ML VIAL SLOW IVP SCH (18:26)
[2023-05-06 21:02] VITALS: BP 84/58
[2023-05-07 09:34] VITALS: TEMP 97.8
[2023-05-07] MEDS ORDERED: Morphine 4 MG/ML VIAL SLOW IVP SCH (12:00)
== END 2023-05-07 10:45 | disposition expired | DRG 951 ==
LOC: IMCU/EMU 17:45
PROVIDERS: ADMIT Family Medicine; ATTEND Family Medicine
PROC: 5A09357 Assistance with Respiratory Ventilation, Less than 24 Consecutive Hours, Continuous Positive Airway Pressure (ICD-10-PCS; principal; 2023-05-06)
DX: Z51.5 Encounter for palliative care (principal); J96.01 Acute respiratory failure with hypoxia; I21.4 Non-ST elevation (NSTEMI) myocardial infarction; I50.32 Chronic diastolic (congestive) heart failure; N17.9 Acute kidney failure, unspecified; N39.0 Urinary tract infection, site not specified; E11.22 Type 2 diabetes mellitus with diabetic chronic kidney disease; I25.10 Atherosclerotic heart disease of native coronary artery without angina pectoris; N18.30 Chronic kidney disease, stage 3 unspecified; E03.9 Hypothyroidism, unspecified; Z79.899 Other long term (current) drug therapy; Z95.1 Presence of aortocoronary bypass graft; Z88.8 Allergy status to other drugs, medicaments and biological substances; Z79.4 Long term (current) use of insulin; Z79.82 Long term (current) use of aspirin; Z79.890 Hormone replacement therapy; Z90.710 Acquired absence of both cervix and uterus; Z98.890 Other specified postprocedural states
CPT/HCPCS: J2272